=== PATIENT | male | born 1945 | race Two or more races ===

== ENCOUNTER 2016-02-25 21:35 | Emergency (ER) | payer MEDICARE, MEDICAID ==
[~2016-02-25] VITALS: Ht 172.7 cm; Wt 85.3 kg
[2016-02-25 21:35] VITALS: BP 165/93
[2016-02-25 22:07] LABS: BASOPHILS % (AUTO) 0.6 % (0.0-2.0); DIFF TOTAL % 100 %; EOSINOPHILS # (AUTO) 0.1 /CMM (0.0-0.7); EOSINOPHILS % (AUTO) 1.3 % (0.0-6.0); HEMATOCRIT 39 % (39-51); HEMOGLOBIN 12.7 g/dL (13.5-17.5); LYMPHOCYTES # (AUTO) 1.8 /CMM (0.8-4.8); LYMPHOCYTES % (AUTO) 24.8 % (20.0-44.0); MEAN CORPUSCULAR HEMOGLOBIN 29 PG (26.0-33.0); MEAN CORPUSCULAR HGB CONC 33 g/dl (31.0-36.0); MEAN CORPUSCULAR VOLUME 90 fL (80-96); MONOCYTES # (AUTO) 0.9 /CMM (0.1-1.30); MONOCYTES % (AUTO) 12.7 % (2.0-12.0); NEUTROPHILS # (AUTO) 4.5 /CMM (1.8-8.9); NEUTROPHILS % (AUTO) 60.6 % (43.0-81.0); PLATELET COUNT (AUTO) 345 /CMM (150-450); RED BLOOD CELL COUNT(AUTO) 4.34 MIL/uL (4.5-6.0); WHITE BLOOD COUNT (AUTO) 7.5 K/uL (4.3-11.0)
[2016-02-25 22:10] LABS: KETONES,URINE NEGATIVE (NEGATIVE); LEUKOCYTE ESTERASE ,URINE NEGATIVE (NEGATIVE)
[2016-02-25 22:19] LABS: ANION GAP 13 (5-14); CALCIUM, SERUM 8.9 mg/dL (8.5-10.1); CARBON DIOXIDE 29 mmol/L (21-32); CHLORIDE 103 mmol/L (98-107); GFR 74 mL/min (>60); GLUCOSE 118 mg/dL (74-106); POTASSIUM 3.6 mmol/L (3.5-5.1); SODIUM SERUM 141 mmol/L (136-145); UREA NITROGEN, BLOOD 16 mg/dL (7-18)
[2016-02-25 22:25] LABS: ALANINE AMINOTRANSFERASE 85 U/L (12-78); ALBUMIN 3.1 g/dL (3.4-5.0); ASPARTATE AMINOTRANSFERASE 39 U/L (15-37); BILIRUBIN,DIRECT 0.4 mg/dL (0.0-0.2); BILIRUBIN,TOTAL 1.3 mg/dL (0.2-1.0); INDIRECT BILIRUBIN 0.9 mg/dL (0.0-1.1); TOTAL PROTEIN, SERUM 7.7 g/dL (6.4-8.2)
[2016-02-25 22:27] LABS: LACTIC ACID 0.9 mmol/L (0.4-2.0); TROPONIN I < 0.017 ng/mL (0.00-0.056)
[2016-02-25 22:40] LABS: INR 1.1 (0.87-1.13); PROTHROMBIN TIME 11.9 SECS (9.5-12.7)
[2016-02-25 23:01] LABS: ADD UA MICROSCOPIC YES
[2016-02-25 23:06] LABS: ADD URINE CULTURE NO; RBC,URINE 0-2 /HPF (0-2); WBC,URINE 0-2 /HPF (0-3)
== END 2016-02-25 23:43 | disposition home or self-care (01) ==
LOC: ER 21:37
DX: R31.9 Hematuria, unspecified (principal); R10.9 Unspecified abdominal pain; I10 Essential (primary) hypertension
CPT/HCPCS: 36415; 71010-TC; 80048-TC; 80076-TC; 81000-TC; 83605-TC; 84484-TC; 85025-TC; 85730-TC; 87040-TC; 87400; A4606; Z7610

== ENCOUNTER 2016-07-01 15:51 | Emergency (ER) | payer MEDICARE, MEDICAID ==
[~2016-07-01] VITALS: Ht 167.6 cm; Wt 90.7 kg
--- NOTE | 2016-07-01 15:55 | NUR ---
BB FAMILY: HIGH BLOOD PRESSURE, DIZZINESS x 2 DAYS. PLACED ON MONITOR. GOWNED PT. AWAITING MD ORDER.
--- NOTE | 2016-07-01 16:26 | NUR ---
ekg in progress
[2016-07-01] MEDS ORDERED: AMLODIPINE BESYLATE 5 MG TABLET ONE (16:45)
--- NOTE | 2016-07-01 16:58 | NUR ---
RAC 18 IV ACCESS. BLOOD SAMPLE COLLECTED SENT TO LAB
[2016-07-01] MEDS ORDERED: AMLODIPINE BESYLATE 5 MG TABLET PO ONE (17:00)
--- NOTE | 2016-07-01 17:00 | NUR ---
LEAD SYSTEMS ENGINEER AT BEDSIDE
[2016-07-01 17:01] LABS: BASOPHILS # (AUTO) 0.1 /CMM (0.0-0.2); BASOPHILS % (AUTO) 0.7 % (0.0-2.0); EOSINOPHILS # (AUTO) 0.1 /CMM (0.0-0.7); HEMATOCRIT 45 % (39-51); HEMOGLOBIN 15.1 g/dL (13.5-17.5); LYMPHOCYTES # (AUTO) 2.8 /CMM (0.8-4.8); LYMPHOCYTES % (AUTO) 33.2 % (20.0-44.0); MEAN CORPUSCULAR HEMOGLOBIN 30 PG (26.0-33.0); MEAN CORPUSCULAR HGB CONC 34 g/dl (31.0-36.0); MEAN CORPUSCULAR VOLUME 90 fL (80-96); MONOCYTES # (AUTO) 0.7 /CMM (0.1-1.30); NEUTROPHILS # (AUTO) 4.6 /CMM (1.8-8.9); NEUTROPHILS % (AUTO) 57.1 % (43.0-81.0); PLATELET COUNT (AUTO) 188 /CMM (150-450); RED BLOOD CELL COUNT(AUTO) 4.98 MIL/uL (4.5-6.0); WHITE BLOOD COUNT (AUTO) 8.3 K/uL (4.3-11.0)
[2016-07-01 17:08] LABS: CALCIUM, SERUM 9.3 mg/dL (8.5-10.1); CARBON DIOXIDE 30 mmol/L (21-32); CHLORIDE 105 mmol/L (98-107); GFR 74 mL/min (>60); GLUCOSE 93 mg/dL (74-106); POTASSIUM 4.4 mmol/L (3.5-5.1); SODIUM SERUM 140 mmol/L (136-145); UREA NITROGEN, BLOOD 14 mg/dL (7-18)
[2016-07-01 17:12] LABS: INR 1.08 (0.87-1.13); PROTHROMBIN TIME 11.2 SECS (9.5-12.7)
[2016-07-01 17:18] LABS: TROPONIN I < 0.017 ng/mL (0.00-0.056)
[2016-07-01] MEDS ORDERED: VALS1TAB2 PO (17:25)
[2016-07-01] MEDS ORDERED: hydrALAZINE HCL IV 20 MG VIAL ONE (17:48)
[2016-07-01] MEDS ORDERED: hydrALAZINE HCL IV 20 MG VIAL IV ONE (18:00)
--- NOTE | 2016-07-01 18:36 | NUR ---
IV removed. Catheter intact and site benign. Pressure and 4x4 applied to site. No bleeding noted.
[2016-07-01 18:37] VITALS: BP 180/80
--- NOTE | 2016-07-01 18:37 | NUR ---
Patient discharged to home in stable condition. Written and verbal after care instructions given. Patient verbalizes understanding of instruction.
== END 2016-07-01 18:38 | disposition home or self-care (01) ==
LOC: ER 15:54
DX: I10 Essential (primary) hypertension (principal); F10.20 Alcohol dependence, uncomplicated; F17.210 Nicotine dependence, cigarettes, uncomplicated
CPT/HCPCS: 36415; 71010-TC; 80048-TC; 84484-TC; 85025-TC; 85730-TC; A4606; J0360; Z7610

== ENCOUNTER 2017-07-07 16:23 | Inpatient (IN) | payer MEDICAID, MEDICARE ==
[~2017-07-07] VITALS: Ht 170.2 cm; Wt 87.1 kg
[~2017-07-07 16:23] MED LIST: VALS1TAB2 PO
--- NOTE | 2017-07-07 16:30 | NUR ---
BIB DTRS DT CHEST PALPITATION X 15 DAYS. PATIENT IS AWAKE AND ALERT, APPEARS IN NO DISTRESS,. RESPIRATION EVEN AND UNLABORED. SKIN IS WARM AND NON DIAPHORETIC. AFEBRILE AT THIS TIME, PATIENT NOTED AFIB ON TELE MONITOR. MD MADE AWARE. EKG IN PROGRESS
[2017-07-07] MEDS ORDERED: ASPIRIN EC 325 MG TABLET.DR PO ONE (16:34)
[2017-07-07] MEDS ORDERED: DILTIAZEM HCL 25 MG IV ONE (16:40)
[2017-07-07] MEDS ORDERED: ASPIRIN 325 MG TABLET ONE (16:43)
--- NOTE | 2017-07-07 16:44 | NUR ---
DITIAZEM SLOW IVP GIVEN ORDERED
[2017-07-07 16:48] LABS: BASOPHILS # (AUTO) 0.1 /CMM (0.0-0.2); BASOPHILS % (AUTO) 1.1 % (0.0-2.0); EOSINOPHILS % (AUTO) 0.5 % (0.0-6.0); HEMATOCRIT 45 % (39-51); HEMOGLOBIN 15.2 g/dL (13.5-17.5); MEAN CORPUSCULAR HGB CONC 34 g/dl (31.0-36.0); MEAN CORPUSCULAR VOLUME 88 fL (80-96); MONOCYTES # (AUTO) 0.7 /CMM (0.1-1.30); MONOCYTES % (AUTO) 6.3 % (2.0-12.0); NEUTROPHILS # (AUTO) 7.5 /CMM (1.8-8.9); NEUTROPHILS % (AUTO) 66.1 % (43.0-81.0); PLATELET COUNT (AUTO) 178 /CMM (150-450); RDW COEFFICIENT OF VARIATION 13.6 (11.5-15.0); RED BLOOD CELL COUNT(AUTO) 5.05 MIL/uL (4.5-6.0); WHITE BLOOD COUNT (AUTO) 11.4 K/uL (4.3-11.0)
--- NOTE | 2017-07-07 16:50 | NUR ---
CALLED PHARMACY FOR MITUL MCLEAN
--- NOTE | 2017-07-07 16:54 | NUR ---
CALLED NURSING MEDICAL RECORD ADMINISTRATOR AND REQUESTED AN ICU BED FOR THIS PT.
--- NOTE | 2017-07-07 16:55 | NUR ---
DR. JENKINS AT BEDSIDE
[2017-07-07] MEDS ORDERED: ASPIRIN 325 MG TABLET PO ONE (17:00)
[2017-07-07] MEDS ORDERED: DILTIAZEM HCL IV 125 MG in IV NS 0.9% 100 ML IV PRN (17:00)
[2017-07-07] MEDS ORDERED: DILTIAZEM HCL 25 MG IV IV ONE (17:00)
--- NOTE | 2017-07-07 17:05 | NUR ---
CARDIZEM DRIP NOT STARTED PER MD LAIRD. PATIENT'S HR CONTROLLED.
[2017-07-07 17:13] LABS: TROPONIN I 0.02 ng/mL (0.00-0.056)
[2017-07-07] MEDS ORDERED: ERGO500014 PO (17:15)
[2017-07-07] MEDS ORDERED: METO50TA16 PO (17:15)
[2017-07-07] MEDS ORDERED: ASPI-866 PO (17:15)
[2017-07-07] MEDS ORDERED: HYDR25TA4 PO (17:15)
[2017-07-07] MEDS ORDERED: NIFE60TA69 PO (17:15)
[2017-07-07] MEDS ORDERED: LOVA20TA2 PO (17:15)
[2017-07-07] MEDS ORDERED: IBUP-1957 PO (17:15)
[2017-07-07 17:22] LABS: INR 1.11 (0.85-1.15)
[2017-07-07 17:35] LABS: CALCIUM, SERUM 8.7 mg/dL (8.5-10.1); CREATININE 1.5 mg/dL (0.6-1.3); POTASSIUM 3.8 mmol/L (3.5-5.1)
[2017-07-07 17:37] LABS: ALBUMIN 3.6 g/dL (3.4-5.0); BILIRUBIN,DIRECT 0.3 mg/dL (0.0-0.2); BILIRUBIN,TOTAL 1.6 mg/dL (0.2-1.0); TOTAL PROTEIN, SERUM 7.4 g/dL (6.4-8.2)
[2017-07-07] MEDS ORDERED: IV NS 0.9% 1,000 ML IV PRN (17:51)
[2017-07-07] MEDS ORDERED: ZOLPIDEM TARTRATE 5 MG TABLET PO PRN (18:00)
[2017-07-07] MEDS ORDERED: Z GUARD REMEDY 2 OZ OINT TP PRN (18:00)
[2017-07-07] MEDS ORDERED: IV NS 0.9% 1,000 ML BAG IV ONE (18:00)
[2017-07-07] MEDS ORDERED: MAGNESIUM HYDROXIDE 30 ML UDC PO PRN (18:00)
[2017-07-07] MEDS ORDERED: HYDROCODONE/APAP 5/325MG 1 EACH TABLET PO PRN (18:00)
[2017-07-07] MEDS ORDERED: DILTIAZEM HCL 50 MG IV IV PRN (18:00)
[2017-07-07] MEDS ORDERED: ONDANSETRON HCL/PF 4 MG/2 ML VIAL IVP PRN (18:00)
[2017-07-07] MEDS ORDERED: ERGOCALCIFEROL (VITAMIN D 2) 50,000 UNIT CAPSULE PO SCH (18:00)
[2017-07-07] MEDS ORDERED: ACETAMINOPHEN 325 MG TABLET PO PRN (18:00)
[2017-07-07] MEDS ORDERED: MAG HYDROX/AL HYDROX/SIMETH 30 ML UDC PO PRN (18:00)
--- NOTE | 2017-07-07 18:11 | NUR ---
PT IS ASSIGNED TO [facility] RM#: [id number], PT IS DIAGNOSED WITH A-FIB WITH RVR, AND DR JENKINS IS THE ACCEPTING MD.
--- NOTE | 2017-07-07 18:35 | NUR ---
PATIENT TRANSPORTED TO TELE. S
--- NOTE | 2017-07-07 18:40 | NUR ---
SALES AND MARKETING EXECUTIVE NOTE: RECEIVED PATIENT IN ROOM 112-2 AND REPORT WAS GIVEN BY ZACHARIAH PÉREZ RN. PATIENT WAS TRANSPORTED VIA GURNEY WITH HIS FAMILY PRESENT AT THE BEDSIDE. ON INCLINOMETER TESTER, Joe MCDANIELS (CONTROLLED) HR= 85. PER ZACHARIAH PÉREZ NURSE CARDIZEM 15MG IVP X1 AND ASPIRIN 325 MG PO X1 WAS ADMINISTERED IN ER. VITAL SIGN WAS TAKEN. BP= 156/91, 97.9F, 85, 20 97% IN ROOM AIR AND 0/10. REPORT WILL BE GIVEN TO PM SHIFT NURSE FOR CONTINUITY OF CARE.
[2017-07-07] MEDS: NIFEdipine XL 60 MG TAB PO SCH (18:56)
[2017-07-07] MEDS: METOPROLOL TARTRATE 50 MG TABLET PO SCH (18:56)
[2017-07-07] MEDS ORDERED: ENOXAPARIN SODIUM 40 MG/0.4 ML DISP.SYRIN SQ SCH ×2 (19:00)
[2017-07-07 20:00] VITALS: BP_SYST 160; BP_DIAS 70; BP_DIAS 77
[2017-07-07 20:56] VITALS: BP 160/77
[2017-07-08] VITALS: BP 139/80
[2017-07-08 04:00] VITALS: BP 119/59
[2017-07-08] MEDS: DILTIAZEM HCL 25 MG IV IV PRN (05:00)
[2017-07-08 06:17] LABS: BASOPHILS # (AUTO) 0.1 /CMM (0.0-0.2); BASOPHILS % (AUTO) 0.5 % (0.0-2.0); EOSINOPHILS % (AUTO) 0.8 % (0.0-6.0); HEMATOCRIT 42 % (39-51); HEMOGLOBIN 14.1 g/dL (13.5-17.5); LYMPHOCYTES # (AUTO) 3.7 /CMM (0.8-4.8); LYMPHOCYTES % (AUTO) 29.4 % (20.0-44.0); MEAN CORPUSCULAR HGB CONC 33 g/dl (31.0-36.0); MEAN CORPUSCULAR VOLUME 90 fL (80-96); MONOCYTES # (AUTO) 1.1 /CMM (0.1-1.30); MONOCYTES % (AUTO) 8.4 % (2.0-12.0); NEUTROPHILS # (AUTO) 7.6 /CMM (1.8-8.9); NEUTROPHILS % (AUTO) 60.9 % (43.0-81.0); PLATELET COUNT (AUTO) 185 /CMM (150-450); RDW COEFFICIENT OF VARIATION 14.7 (11.5-15.0); RED BLOOD CELL COUNT(AUTO) 4.71 MIL/uL (4.5-6.0); WHITE BLOOD COUNT (AUTO) 12.5 K/uL (4.3-11.0)
--- NOTE | 2017-07-08 06:26 | NUR ---
RN NOTES RECEIVED PATIENT IN BED EATING WITH FAMILY AT BEDSIDE. NO RESPIRATORY DISTRESS OR SHORTNESS OF BREATH. BREATHING EVEN AND UNLABORED. NO COMPLAINT OF PAIN OF THIS TIME. ALERT AND ORIENTED, YORUBA SPEAKING. ABLE TO VERBALIZE NEEDS. WILL CONTINUE TO MONITOR. KEPT CLEAN AND DRY.
--- NOTE | 2017-07-08 06:28 | NUR ---
RN NOTES ALERT AND ORIENTED. PATIENT DID NOT SLEEP THE WHOLE NIGHT COMPLAINING OF ACID REFLUX AND CHEST PALPITATION. MAALOX AND CARDIZEM GIVEN, WITH HELP. HEART RATE FLACTUATES FROM 70'S TO 165BPM. AFEBRILE WITH SKIN WARM AND DRY TO TOUCH. KEPT CLEAN AND DRY. WILL ENDORSE TO AM SHIFT FOR CONTINUITY OF CARE.
[2017-07-08 06:50] LABS: CALCIUM, SERUM 8.8 mg/dL (8.5-10.1); CREATININE 1.3 mg/dL (0.6-1.3); MAGNESIUM 1.7 mg/dL (1.8-2.4); PHOSPHORUS 2.4 mg/dL (2.5-4.9); POTASSIUM 3.6 mmol/L (3.5-5.1)
--- NOTE | 2017-07-08 07:25 | NUR ---
RN NOTES RECEIVED PT FROM LABOR CREW SUPERVISOR, A&0X3, PRIMARILY GEORGIAN SPEAKING, ON ROOM AIR NO SOB OR DISTRESS NOTED. A FIB ON THE TELE LAURA HR 83. RAC 20G IV SITE INTACT NO IVF. BED LOCKED AND IN LOWEST POSITION, CALL LIGHT WITHIN REACH, SIDE RAILS UPX3, WILL CONT TO LAURA.
[2017-07-08 08:00] VITALS: BP_SYST 117; BP_SYST 118; BP_DIAS 52; BP_DIAS 79
[2017-07-08] MEDS: METOPROLOL TARTRATE 50 MG TABLET PO SCH (08:31)
[2017-07-08] MEDS: NIFEdipine XL 60 MG TAB PO SCH (08:31)
[2017-07-08] MEDS ORDERED: ASPIRIN EC 81 MG TABLET.DR PO SCH (09:00)
--- NOTE | 2017-07-08 09:00 | NUR ---
RN NOTES PT SR ON WITH PACS ON TELE LAURA.
[2017-07-08] MEDS: Magnesium 1GM/D5W 100ML PREMIX 100 ML IV SCH ×2 (09:45→11:10)
[2017-07-08] MEDS: DRONEDARONE HYDROCHLORIDE 400 MG TABLET PO SCH ×2 (10:26→16:18)
[2017-07-08 12:00] VITALS: BP 129/56
[2017-07-08] MEDS ORDERED: K PHOS NEUTRAL 250 MG TABLET PO ONE (15:30)
--- NOTE | 2017-07-08 15:40 | NUR ---
Patient speaks Greek,lives locally with family. He is ambulatory and independent with adl's prior to admit. Has good family support. He plan to return home once discharge. Family will provide ride when discharge. Addendum: 07/08/17 at 1540 by JODEE CHRISTENSEN RN Amended: Links added.
[2017-07-08 16:00] VITALS: BP 107/47
[2017-07-08] MEDS ORDERED: FLUTICASONE PROPIONATE 16 GM BOTTLE NS PRN (16:00)
[2017-07-08] MEDS ORDERED: RIVAROXABAN 10 MG TABLET PO SCH (17:00)
--- NOTE | 2017-07-08 17:40 | NUR ---
RN NOTES REPORT GIVEN TO FLORENCIA FOR CONTINUITY OF CARE.
--- NOTE | 2017-07-08 17:45 | NUR ---
PROMOTIONAL ADVERTISING ASSISTANT NOTES RECEIVED PATIENT FROM [place] FOR CONTINUITY OF CARE, ON TELE MONITOR 84 NSR. AMBULATORY, FAMILY AT BEDSIDE, WILL CONTINUE TO MONITOR
--- NOTE | 2017-07-08 18:57 | NUR ---
GRINDER CHIPPER END NOTES PATIENT RESTING IN BED, FAMILY AT BEDSIDE, ALL NEEDS MET, ALL QUESTIONS ANSWERED. WILL ENDORSE TO SHIRT IRONER SUPERVISOR FOR CONTINUITY OF CARE.
[2017-07-08 20:00] VITALS: BP 129/63
[2017-07-09] VITALS: BP 106/64
[2017-07-09] MEDS: DILTIAZEM HCL 25 MG IV IV PRN ×2 (01:58→06:42)
--- NOTE | 2017-07-09 02:30 | NUR ---
RN NOTES NOTED PATIENT'S HR INCREASING FROM 140'S TO 165. DILTIAZEM 10MG (2ML) ADMINISTERED VIA IV SLOW PUSH AT 0158. CONTINUED TO MONITOR. PATIENT'S HR STABILIZES FROM 80'S TO 90'S. WILL CONTINUE TO MONITOR
--- NOTE | 2017-07-09 03:37 | NUR ---
RN NOTES PATIENT AWAKE, ALERT AND ORIENTED. LYING COMFORTABLY IN BED WITH NO RESPIRATORY DISTRESS OR SHORTNESS OF BREATH. BREATHING EVEN AND UNLABORED. NO COMPLAINT OF PAIN OF THIS TIME. PATIENT STATED HE FELT BETTER THAN LAST NIGHT. TO CONTINUE TO MONITOR. KEPT CLEAN AND DRY. Addendum: 07/09/17 at 0344 by MAURO ANDREWS RN DOCUMENTATION FOR 1999.
[2017-07-09 04:00] VITALS: BP 128/59
--- NOTE | 2017-07-09 06:50 | NUR ---
RN CLOSING NOTES PATIENT IN BED, COMPLAINING OF PALPITATION. NOTED INCREASE IN HEART RATE TO 170'S. CARDIZEM IV PUSH 10MG GIVEN. Addendum: 07/09/17 at 0656 by MAURO ANDREWS RN MEDICATION WITH HELP. PATIENT'S HEART IN THE 80'S. PATIENT ALSO NOTED WITH COMPLAINT OF REFLUX AND PALPITATION. HINTED THAT MAYBE THE CAUSE OF HIS PALPITATION IS HIS REFLUX. OBSERVED PATIENT BURPING A LOT. WILL ENDORSE TO AM SHIFT FOR CONTINUITY OF CARE.
[2017-07-09 07:06] LABS: BASOPHILS % (AUTO) 0.4 % (0.0-2.0); EOSINOPHILS % (AUTO) 1.1 % (0.0-6.0); HEMATOCRIT 41 % (39-51); HEMOGLOBIN 13.9 g/dL (13.5-17.5); LYMPHOCYTES # (AUTO) 3.1 /CMM (0.8-4.8); LYMPHOCYTES % (AUTO) 30.7 % (20.0-44.0); MEAN CORPUSCULAR HGB CONC 34 g/dl (31.0-36.0); MEAN CORPUSCULAR VOLUME 89 fL (80-96); MONOCYTES % (AUTO) 9.5 % (2.0-12.0); NEUTROPHILS # (AUTO) 5.9 /CMM (1.8-8.9); NEUTROPHILS % (AUTO) 58.3 % (43.0-81.0); PLATELET COUNT (AUTO) 181 /CMM (150-450); RDW COEFFICIENT OF VARIATION 14.7 (11.5-15.0); RED BLOOD CELL COUNT(AUTO) 4.59 MIL/uL (4.5-6.0); WHITE BLOOD COUNT (AUTO) 10.1 K/uL (4.3-11.0)
--- NOTE | 2017-07-09 07:10 | NUR ---
STORAGE ARCHITECT OPENING NOTES RECEIVED PT IN BED IN SEMI FOWLERS POSITION, BREATHING EVEN AND UNLABORED, NO C/O PAIN, ON TELE MONITOR SR 77, WITH LAC IV, INTACT AND PATENT, BED IN LOW AND LOCKED POSITION, CALL LIGHT WITHIN REACH, SAFETY MEASURES OBSERVED, WILL CONTINUE TO MONITOR
[2017-07-09 07:23] LABS: ALBUMIN 3.7 g/dL (3.4-5.0); BILIRUBIN,TOTAL 2.3 mg/dL (0.2-1.0); CALCIUM, SERUM 8.7 mg/dL (8.5-10.1); CREATININE 1.1 mg/dL (0.6-1.3); PHOSPHORUS 3.2 mg/dL (2.5-4.9); POTASSIUM 3.6 mmol/L (3.5-5.1); TOTAL PROTEIN, SERUM 7.5 g/dL (6.4-8.2)
[2017-07-09 08:00] VITALS: BP 133/78
[2017-07-09] MEDS: DRONEDARONE HYDROCHLORIDE 400 MG TABLET PO SCH (09:46)
[2017-07-09] MEDS: NIFEdipine XL 60 MG TAB PO SCH (09:46)
[2017-07-09] MEDS ORDERED: RIVA10TA PO (11:19)
[2017-07-09] MEDS ORDERED: DRON400T2 PO (11:19)
[2017-07-09 12:00] VITALS: BP 130/75
--- NOTE | 2017-07-09 13:30 | NUR ---
SALVAGE MEND WORKER NOTES D/C PT TO HOME IN STABLE CONDITION, NO ACUTE DISTRESS NOTED, NO C/O PAIN, ACCOMPANIED BY DAUGHTER TL, IV LINE REMOVED, IV CATH INTACT, PRESSURE DRESSING APPLIED, NO SIGNS OF INFECTION/BLEEDING, DISCUSSED D/C INSTRUCTION TO PT AND TL(PT'S DTR), VERBALIZED UNDERSTANDING, ALL NEEDS MET. D/C
== END 2017-07-09 13:29 | disposition home or self-care (01) | DRG 201 ==
LOC: ER 16:28 → TELE1 18:25
PROVIDERS: ADMIT Internal Medicine; ATTEND Internal Medicine
DX: I48.91 Unspecified atrial fibrillation (principal); N17.0 Acute kidney failure with tubular necrosis; I10 Essential (primary) hypertension; E78.5 Hyperlipidemia, unspecified; F17.210 Nicotine dependence, cigarettes, uncomplicated; Z71.6 Tobacco abuse counseling; E83.42 Hypomagnesemia
CPT/HCPCS: 36415; 71045-TC; 80048-TC; 80053-TC; 80061-TC; 80076-TC; 83735-TC; 84100-TC; 84443-TC; 84484-TC; 85025-TC; 85730-TC; 87081-TC; 93307-TC; A4606; J2405; J3475; J3490; J7030; Z7610

== ENCOUNTER 2021-12-01 14:26 | Inpatient (IN) | payer MEDICARE, BC ==
[~2021-12-01] VITALS: Ht 162.6 cm; Wt 88.5 kg
[~2021-12-01 14:26] MED LIST changes: +ASPI-866 PO; +DRON400T6 PO; +ERGO500014 PO; +HYDR25TA4 PO; +IBUP-1957 PO; +LOVA20TA2 PO; +METO50TA16 PO; +NIFE-34 PO; +RIVA10TA PO; -VALS1TAB2 PO
--- NOTE | 2021-12-01 14:35 | NUR ---
pt milton from home to er bed 07, per ems pt was c/o pressure like chest pain, palpitation at home when check his heart rate was at 200's. paramedics came and gave adenosine 6mg x 1, converted to sinus tach. pt is aaox 4 east timorese speaking. awaiting md marina.
--- NOTE | 2021-12-01 15:55 | NUR ---
dr nettles at bedside for eval.
[2021-12-01] MEDS ORDERED: ASPIRIN 325 MG TABLET PO ONE (16:00)
[2021-12-01] MEDS ORDERED: ASPIRIN 325 MG TABLET ONE (16:03)
--- NOTE | 2021-12-01 16:11 | NUR ---
clinical genetics laboratory chief at bedside for blood draw.
[2021-12-01 16:17] LABS: BASOPHILS # (AUTO) 0.1 K/uL (0.0-0.2); BASOPHILS % (AUTO) 0.9 % (0.0-2.0); EOSINOPHILS % (AUTO) 0.3 % (0.0-6.0); HEMATOCRIT 36 % (39-51); HEMOGLOBIN 11.4 g/dL (13.5-17.5); LYMPHOCYTES # (AUTO) 1.3 K/uL (0.8-4.8); LYMPHOCYTES % (AUTO) 13.4 % (20.0-44.0); MEAN CORPUSCULAR HGB CONC 32 g/dl (31.0-36.0); MEAN CORPUSCULAR VOLUME 91 fL (80-96); MONOCYTES # (AUTO) 1.1 K/uL (0.1-1.30); MONOCYTES % (AUTO) 11.3 % (2.0-12.0); NEUTROPHILS # (AUTO) 6.9 K/uL (1.8-8.9); NEUTROPHILS % (AUTO) 74.1 % (43.0-81.0); PLATELET COUNT (AUTO) 280 K/uL (150-450); RED BLOOD CELL COUNT(AUTO) 3.91 MIL/uL (4.5-6.0); WHITE BLOOD COUNT (AUTO) 9.3 K/uL (4.3-11.0)
[2021-12-01 16:31] LABS: CALCIUM, SERUM 8.8 mg/dL (8.5-10.1); CARBON DIOXIDE 27 mmol/L (21-32); CHLORIDE 105 mmol/L (98-107); CREATININE 1.5 mg/dL (0.6-1.3); GLUCOSE 110 mg/dL (74-106); POTASSIUM 4.1 mmol/L (3.5-5.1); SODIUM SERUM 140 mmol/L (136-145); UREA NITROGEN, BLOOD 16 mg/dL (7-18)
[2021-12-01 16:43] LABS: ALANINE AMINOTRANSFERASE 53 U/L (12-78); ALKALINE PHOSPHATASE 107 U/L (46-116); ASPARTATE AMINOTRANSFERASE 29 U/L (15-37); BILIRUBIN,DIRECT 0.8 mg/dL (0.0-0.2); BILIRUBIN,TOTAL 1.9 mg/dL (0.2-1.0)
[2021-12-01] MEDS ORDERED: FUROSEMIDE 20 MG/2 ML VIAL IV ONE (17:30)
[2021-12-01] MEDS ORDERED: FUROSEMIDE 20 MG/2 ML VIAL ONE (17:35)
[2021-12-01] MEDS ORDERED: ERGO500093 PO (18:13)
[2021-12-01] MEDS ORDERED: METO25TA4 PO (18:13)
[2021-12-01] MEDS ORDERED: ESOM40CA PO (18:13)
[2021-12-01] MEDS ORDERED: ROSU20TA32 PO (18:13)
[2021-12-01] MEDS ORDERED: IBUP-1957 PO (18:13)
[2021-12-01] MEDS ORDERED: PROM118S5 PO (18:13)
[2021-12-01] MEDS ORDERED: FAMO40TA7 PO (18:13)
[2021-12-01] MEDS ORDERED: HYDR28.316 RC (18:13)
[2021-12-01] MEDS ORDERED: NYST30CR3 TD (18:13)
[2021-12-01] MEDS ORDERED: FLUT16SP16 (18:13)
[2021-12-01] MEDS ORDERED: METF-440 PO (18:13)
--- NOTE | 2021-12-01 19:00 | NUR ---
daughter jessi left contact # [phone]
--- NOTE | 2021-12-01 19:17 | NUR ---
report given to inderjit doe for robb.
--- NOTE | 2021-12-01 19:49 | NUR ---
RECEIVED REPORT FROM MELIZA RAYA. PATIENT IS AAOX4. ABLE TO MAKE NEEDS KNOWN. CAME WITH CC OF TACHYCARDIA. PATIENT ATTACHED TO MONITOR. VITALS CHECKED. WITH IV CANNULA G18 ON RIGHT AC.
[2021-12-01] MEDS ORDERED: Z GUARD REMEDY 4 OZ OINT TP PRN (20:30)
[2021-12-01] MEDS ORDERED: TEMAZEPAM 15 MG CAPSULE PO PRN (20:30)
[2021-12-01] MEDS ORDERED: MAG HYDROX/AL HYDROX/SIMETH 30 ML UDC PO PRN (20:30)
[2021-12-01] MEDS ORDERED: MORPHINE SULFATE INJ 2 MG/ML DISP.SYRIN IV PRN (20:30)
[2021-12-01] MEDS ORDERED: ONDANSETRON HCL/PF 4 MG/2 ML VIAL IVP PRN (20:30)
[2021-12-01] MEDS ORDERED: HYDROCODONE/APAP 5/325MG TABLET PO PRN (20:30)
[2021-12-01] MEDS ORDERED: MAGNESIUM HYDROXIDE 30 ML UDC PO PRN (20:30)
[2021-12-01] MEDS ORDERED: ACETAMINOPHEN 325 MG TABLET PO PRN (20:30)
[2021-12-01] MEDS ORDERED: ENOXAPARIN SODIUM 30 MG/0.3 ML DISP.SYRIN SQ SCH (21:00)
--- NOTE | 2021-12-01 21:45 | NUR ---
REPORT GIVEN TO MELIZA GENAO.
--- NOTE | 2021-12-01 22:09 | NUR ---
TRANSFERRED PATIENT TO ROOM
[2021-12-01 22:21] VITALS: BP 146/81
--- NOTE | 2021-12-01 22:21 | NUR ---
ENGRAVING SUPERVISOR NOTES: RECEIVED REPORT FROM BROILER CHEF OR COOKMELIZA LONDON. PT TRANSFERRED TO DEL FROM ER VIA STRETCHER, PLACED IN ROOM 116 BED 1. PT AWAKE, ALERT/ORIENTED X4 AND VERBALLY RESPONSIVE. ISRAELI SPEAKING. ABLE TO MAKE HER NEEDS. ON ROOM AIR AND PT TOLERATED WELL. O2 SAT 96%. IV ACCESS ON LAC#20G INTACT AND PATENT. NO S/S OF INFILTRATIONS. NO C/O CHEST PAIN AT THIS MOMENT. NO ACUTE DISTRESS. BODY ASSESSMENT DONE. NO OPEN SKIN OR SKIN DISCOLORATIONS NOTED. PT AMBULATORY. ASSISTED HIM TO THE BATHROOM. AT BEDSIDE. ALL SAFETY MEASURES IN PLACE. SIDE RAILS UP X2, BED IN LOWEST POSITION AND LOCKED. PLACE CALL LIGHT WITH IN REACH. WILL CONTINUE TO MONITOR
--- NOTE | 2021-12-01 22:51 | NUR ---
PRELIMINARY ECHO SHOWED EF 65-70% WITH SMALL TO MODERATE CIRCUMFERENTIAL PERICARDIAL EFFUSION. ADVISED INITIAL FINDINGS TO WINCH TRUCK OPERATOR.
[2021-12-02] VITALS: BP 127/75
[2021-12-02 04:00] VITALS: BP 154/78
--- NOTE | 2021-12-02 06:40 | NUR ---
RN CLOSING NOTES: PT AWAKE, ALERT/ORIENTED X4 AND VERBALLY RESPONSIVE. YI SPEAKING. WALKING ON THE HALLWAY. ABLE TO MAKE HIS ALL NEEDS. ON ROOM AIR AND PT TOLERATED WELL. O2 SAT 97%. IV ACCESS ON LAC#20G INTACT AND PATENT. NO S/S OF INFILTRATIONS. NO C/O PAIN OR DISCOMFORT. NO ACUTE DISTRESS. DUE MED GIVEN ORDERED. ALL SAFETY MEASURES IN PLACE. SIDE RAILS UP X2, BED IN LOWEST POSITION AND LOCKED. PLACE CALL LIGHT WITH IN REACH. WILL ENDORSE TO MORNING SHIFT NURSE.
--- NOTE | 2021-12-02 07:00 | NUR ---
RN NOTE RECEIVED PATIENT IN BED,SITTING ALERT ORIENTED X4 VERBALLY RESPONSIVE,TANZANIAN SPEAKING ON ROOM AIR O2:93% AMBULATORY,CONTINET BOWEL/BLADDER.IV SITE IS ON LAC INTACT PATENT,SAFETY MEASURE IMPLEMENT BED IN LOW POSITION AND LOCKED,CALL LIGHT WITHIN REACH,CONTINUE TO MONITOR.
[2021-12-02] MEDS ORDERED: PANTOPRAZOLE 40 MG TABLET.DR PO SCH (07:30)
[2021-12-02 08:00] VITALS: BP 158/84
[2021-12-02 08:16] LABS: CARBON DIOXIDE 24 mmol/L (21-32); CHLORIDE 105 mmol/L (98-107); CREATININE 1.7 mg/dL (0.6-1.3); GLUCOSE 132 mg/dL (74-106); PHOSPHORUS 3.4 mg/dL (2.5-4.9); POTASSIUM 3.7 mmol/L (3.5-5.1); SODIUM SERUM 137 mmol/L (136-145)
[2021-12-02 08:33] LABS: CHOLESTEROL 134 mg/dL (<200); HDL CHOLESTEROL 28 mg/dL (40-60); LDL 97 mg/dL (0-99); THYROID STIMULATING HORMONE 0.905 uIU/mL (0.358-3.74); TRIGLYCERIDES 90 mg/dL (30-150)
[2021-12-02] MEDS ORDERED: FAMOTIDINE (20 MG) 20 MG TABLET PO SCH (09:00)
[2021-12-02] MEDS ORDERED: METFORMIN 500 MG TABLET PO SCH (09:00)
--- NOTE | 2021-12-02 09:00 | NUR ---
RN NOTE DR MARTINEZ SPOKE WITH PATIENT DR RUBIN PRODUCTION PLANNER PATIENT REFUSED,TRANSLATED BY ILANA HAIDER,CONTINUE TO MONITOR.
[2021-12-02 10:45] LABS: UREA NITROGEN, BLOOD 21 mg/dL (7-18)
[2021-12-02 12:00] VITALS: BP 164/98
[2021-12-02] MEDS ORDERED: METOPROLOL TARTRATE 50 MG TABLET PO SCH (12:00)
[2021-12-02 12:21] LABS: BASOPHILS # (AUTO) 0.1 K/uL (0.0-0.2); BASOPHILS % (AUTO) 0.9 % (0.0-2.0); EOSINOPHILS % (AUTO) 1.1 % (0.0-6.0); HEMATOCRIT 35 % (39-51); HEMOGLOBIN 11.4 g/dL (13.5-17.5); LYMPHOCYTES # (AUTO) 2.1 K/uL (0.8-4.8); LYMPHOCYTES % (AUTO) 23.4 % (20.0-44.0); MEAN CORPUSCULAR HGB CONC 33 g/dl (31.0-36.0); MEAN CORPUSCULAR VOLUME 91 fL (80-96); MONOCYTES % (AUTO) 11.7 % (2.0-12.0); NEUTROPHILS # (AUTO) 5.6 K/uL (1.8-8.9); NEUTROPHILS % (AUTO) 62.9 % (43.0-81.0); PLATELET COUNT (AUTO) 292 K/uL (150-450); RED BLOOD CELL COUNT(AUTO) 3.81 MIL/uL (4.5-6.0)
[2021-12-02 12:22] VITALS: BP 164/98
--- NOTE | 2021-12-02 13:00 | NUR ---
RN NOTE CLOTH WASHER NORA PATTON VISITED THE PATIENT REVIEWED ALL MEDS AND POSSIBLE PROCEDURES,PATIENT REFUSED ASSOCIATE PRODUCER,TRANSLATED BY ILANA HAIDER. CONTINUE TO MONITOR.
[2021-12-02] MEDS ORDERED: APIX2.5T PO (13:11)
[2021-12-02] MEDS ORDERED: EMPA10TA PO (13:11)
[2021-12-02] MEDS ORDERED: METO50TA16 PO (13:11)
--- NOTE | 2021-12-02 14:25 | NUR ---
PIPE BENDER NOTE PATIENT DISCHARGE IN STABLE CONDITION,WITH ALL DISCHARGE PAPER WORK AND BELONGINGS,PT SIGNED ALL DISCHARGE PAPERS AND BELONGINGS,ALERT ORIENTED X4 VERBALLY RESPONSIVE ON ROOM AIR 94%NO SOB NOT ACUTE DISTRESS NOTED,INSTRUCTION GIVEN FOR MEDS AND FOLLOWING WITH PRIMARY PHYSICIAN,HE VERBALIZED UNDERSTOOD ALL TEACHING,HE PICKED UP WITH HIS GRANDSON,LEFT HOSPITAL IN STABLE CONDITION BY PRIVATE CAR.VITAL SIGN. 140/86 HR 86 O2:94% ON ROOM AIR T:98.6
[2021-12-02] MEDS ORDERED: N PO SCH (18:00)
[2021-12-03 11:07] LABS: *SPE A/G RATIO 0.8 (0.7-1.7); *SPE ALPHA-1-GLOBULIN 0.5 g/dL (0.0-0.4); *SPE ALPHA-2-GLOBULIN 1.1 g/dL (0.4-1.0); *SPE M-SPIKE Not Observed g/dL (Not Observed)
== END 2021-12-02 15:55 | disposition home or self-care (01) | DRG 308 ==
LOC: ER 14:28 → TELE1 19:38
PROVIDERS: ADMIT Nurse Practitioner Acute Care; ATTEND Nurse Practitioner Acute Care
DX: I47.1 Supraventricular tachycardia (principal); N17.0 Acute kidney failure with tubular necrosis; I24.9 Acute ischemic heart disease, unspecified; R17 Unspecified jaundice; I31.39 Other pericardial effusion (noninflammatory); I48.91 Unspecified atrial fibrillation; E11.9 Type 2 diabetes mellitus without complications; E78.5 Hyperlipidemia, unspecified; E66.9 Obesity, unspecified; D63.8 Anemia in other chronic diseases classified elsewhere; F17.210 Nicotine dependence, cigarettes, uncomplicated; Z71.6 Tobacco abuse counseling; Z68.33 Body mass index [BMI] 33.0-33.9, adult; Z91.199 Patient's noncompliance with other medical treatment and regimen due to unspecified reason; I11.0 Hypertensive heart disease with heart failure; I50.9 Heart failure, unspecified; Z79.84 Long term (current) use of oral hypoglycemic drugs
CPT/HCPCS: 36415; 71045-TC; 76700-TC; 80048-TC; 80061-TC; 80076-TC; 82728-TC; 83540-TC; 83735-TC; 83880; 84100-TC; 84155; 84165; 84439-TC; 84443-TC; 84484-TC; 85025-TC; 87081-TC; 93307-TC; C9803; G0378; J1650; J1940

== ENCOUNTER 2022-02-13 14:34 | Emergency (ER) | payer MEDICARE, BC ==
[~2022-02-13] VITALS: Ht 167.6 cm; Wt 86.2 kg
[~2022-02-13 14:34] MED LIST changes: +APIX2.5T PO; -ASPI-866 PO; -DRON400T6 PO; +EMPA10TA PO; -ERGO500014 PO; +ERGO500093 PO; +ESOM40CA PO; +FAMO40TA7 PO; +FLUT16SP16; -HYDR25TA4 PO; +HYDR28.316 RC; -LOVA20TA2 PO; +METF-440 PO; +METO25TA4 PO; -NIFE-34 PO; +NYST30CR3 TD; +PROM118S5 PO; -RIVA10TA PO; +ROSU20TA32 PO
--- NOTE | 2022-02-13 15:00 | NUR ---
Reclining in bed NO obvious distress Scope shows [facility]
[2022-02-13] MEDS ORDERED: METOPROLOL TARTRATE 25 MG TABLET PO ONE (16:00)
[2022-02-13] MEDS ORDERED: METOPROLOL TARTRATE 25 MG TABLET ONE (16:13)
--- NOTE | 2022-02-13 16:45 | NUR ---
Daughter (Sona) at bedside aware and updated with plan of care apparently "he did not take metoprolol and lasix for couple days." Reiterated importance of meds for condition and she states "well.... i know. I know...you cant force him - thats why he is here"
[2022-02-13] MEDS ORDERED: FUROSEMIDE 40 MG/4 ML VIAL ONE (18:00)
[2022-02-13] MEDS ORDERED: FUROSEMIDE 40 MG/4 ML VIAL IV ONE (18:00)
--- NOTE | 2022-02-13 18:00 | NUR ---
US at bedside
[2022-02-13 18:42] VITALS: BP 134/81
--- NOTE | 2022-02-13 18:43 | NUR ---
Patient discharged to home in stable condition. Written and verbal after care instructions given. Patient verbalizes understanding of instruction.
== END 2022-02-13 18:53 | disposition home or self-care (01) ==
LOC: ER 14:40
DX: I47.1 Supraventricular tachycardia (principal); R60.0 Localized edema; I11.0 Hypertensive heart disease with heart failure; I50.9 Heart failure, unspecified; E78.5 Hyperlipidemia, unspecified; E11.9 Type 2 diabetes mellitus without complications; F17.200 Nicotine dependence, unspecified, uncomplicated; Z79.899 Other long term (current) drug therapy
CPT/HCPCS: 99285; 93970; 96374; 93005; J1940

== ENCOUNTER 2022-04-24 13:46 | Inpatient (IN) | payer MEDICARE, BC ==
[~2022-04-24] VITALS: Ht 157.5 cm; Wt 85.7 kg
--- NOTE | 2022-04-24 13:46 | NUR ---
RECEIVED PT 76 YRS MALE CAME FROM HOME BY SIMON FOR PALPITIONS AND SOB HR 201 B/MIN AN FOR SOB AND AWAKE AND ALERT H/L ON LT AC 18 EKG AT BED SIDE TO OPTENDED PLACE PT ON FIO2 2L NC
[2022-04-24] MEDS ORDERED: ADENOSINE 6 MG/2 ML VIAL ONE (13:56)
[2022-04-24] MEDS ORDERED: ADENOSINE 6 MG/2 ML VIAL IVP ONE (14:00)
--- NOTE | 2022-04-24 14:00 | NUR ---
PT HR 197B/MIN SVT DR. GIL AT BED SIDE CONECTED PT O CARDIAC MONITER AND EKG PAD REINSERTED ADRIANAO PILARETER G 18 ON LT AC PATETENT WILL ADENOSINE 6 MG FAST IVP GIVEN PT CONNECTED TO EKG MASHINE PT RESPONDER HR SLOW DOWEN PT AWAKE AND ALERT FALLOW COMENNED SPOOKING WITH DOUGHTER CONDITION UP DATE
--- NOTE | 2022-04-24 14:25 | NUR ---
BLOOD DROW AND SENT TO LAB
[2022-04-24 14:33] LABS: BASOPHILS % (AUTO) 0.8 % (0.0-2.0); EOSINOPHILS % (AUTO) 1.9 % (0.0-6.0); HEMATOCRIT 40 % (39-51); HEMOGLOBIN 12.3 g/dL (13.5-17.5); LYMPHOCYTES # (AUTO) 1.3 K/uL (0.8-4.8); LYMPHOCYTES % (AUTO) 23.5 % (20.0-44.0); MEAN CORPUSCULAR HGB CONC 31 g/dl (31.0-36.0); MEAN CORPUSCULAR VOLUME 84 fL (80-96); MONOCYTES # (AUTO) 0.6 K/uL (0.1-1.30); MONOCYTES % (AUTO) 11.5 % (2.0-12.0); NEUTROPHILS # (AUTO) 3.3 K/uL (1.8-8.9); NEUTROPHILS % (AUTO) 62.3 % (43.0-81.0); PLATELET COUNT (AUTO) 238 K/uL (150-450); RED BLOOD CELL COUNT(AUTO) 4.79 MIL/uL (4.5-6.0); WHITE BLOOD COUNT (AUTO) 5.4 K/uL (4.3-11.0)
--- NOTE | 2022-04-24 14:35 | NUR ---
C XRAY DONE AT BED SIDE
[2022-04-24 14:48] LABS: CARBON DIOXIDE 24 mmol/L (21-32); CHLORIDE 108 mmol/L (98-107); CREATININE 1.4 mg/dL (0.6-1.3); GLUCOSE 126 mg/dL (74-106); POTASSIUM 4.2 mmol/L (3.5-5.1); SODIUM SERUM 142 mmol/L (136-145); UREA NITROGEN, BLOOD 20 mg/dL (7-18)
[2022-04-24 15:03] LABS: ALANINE AMINOTRANSFERASE 13 U/L (12-78); ALBUMIN 3.4 g/dL (3.4-5.0); ALKALINE PHOSPHATASE 98 U/L (46-116); ASPARTATE AMINOTRANSFERASE 16 U/L (15-37); BILIRUBIN,DIRECT 0.9 mg/dL (0.0-0.2); BILIRUBIN,TOTAL 2.4 mg/dL (0.2-1.0); TOTAL PROTEIN, SERUM 7.1 g/dL (6.4-8.2)
--- NOTE | 2022-04-24 15:12 | NUR ---
DR. HADDAD SPEAKING WITH DR. GIL.
[2022-04-24] MEDS ORDERED: RIVA10TA PO (15:28)
--- NOTE | 2022-04-24 16:00 | NUR ---
DINESES SOB OR CHEST PAIN NO PALPITTION
[2022-04-24] MEDS ORDERED: INSULIN REGULAR, HUMAN 100 UNIT/ML 3 ML VIAL SQ PRN (16:30)
[2022-04-24] MEDS ORDERED: HYDROCODONE/APAP 5/325MG TABLET PO PRN (16:30)
[2022-04-24] MEDS ORDERED: ACETAMINOPHEN 325 MG TABLET PO PRN (16:30)
[2022-04-24] MEDS ORDERED: DEXTROSE 50%-WATER 50 ML DISP.SYRIN IV PRN (16:30)
[2022-04-24] MEDS ORDERED: MAG HYDROX/AL HYDROX/SIMETH 30 ML UDC PO PRN (16:30)
[2022-04-24] MEDS ORDERED: Z GUARD REMEDY 4 OZ OINT TP PRN (16:30)
[2022-04-24] MEDS ORDERED: ONDANSETRON HCL/PF 4 MG/2 ML VIAL IVP PRN (16:30)
[2022-04-24] MEDS ORDERED: MAGNESIUM HYDROXIDE 30 ML UDC PO PRN (16:30)
--- NOTE | 2022-04-24 16:30 | NUR ---
WILDER FOR TELEMETRY BED
--- NOTE | 2022-04-24 16:58 | NUR ---
RN NOTE RECEIVED REPORT FROM MELIZA RAYA. PATIENT IS GOING TO BE ADMITTED TO TELE ROOM 119-2.
--- NOTE | 2022-04-24 17:02 | NUR ---
REPORT TO FREDA HAIDER. PT AWAITING TRANSFER TO FLOOR.
--- NOTE | 2022-04-24 17:17 | NUR ---
RN NOTE PATIENT ARRIVED TO UNIT VIA [facility] ALERT AND ORIENTED TIMES 4, ARABIC SPEAKING, UNDERSTANDS LITTLE LIBERIAN. IV ACCESS LAC #18G. VITALS TAKEN BP: 136/88;HR: 101, RR: 22, O2 SAT 97% ON 2 L NC. LEFT LEG EDEMA NOTED, PICTURE TAKEN AND PLACED IN CHART. BED LOCKED IN LOWEST POSITION, CALL LIGHT WITHIN REACH. ALL SAFETY MEASURES IN PLACE. WILL ENDORSE CONTINUITY OF CARE TO PLANT AND MACHINERY VALUER NURSE. PATIENT BELONGINGS SIGNED.
--- NOTE | 2022-04-24 18:50 | NUR ---
MELIZA NOTE DAUGHTER AT BEDSIDE , ALEXIS [phone]. STATES PATIENT IS BLEEDING Addendum: 04/24/22 at 1851 by FREDA BARRETT RN WHEN HE PASSES BOWELS FOR 4 DAYS.
[2022-04-24] MEDS: FUROSEMIDE 40 MG/4 ML VIAL IV SCH ×2 (18:58→21:04)
[2022-04-24] MEDS: METOPROLOL SUCCINATE 25 MG TAB.SR.24H PO SCH (18:59)
[2022-04-24] MEDS: BLOOD SUGAR DIAGNOSTIC 1 EACH STRIP IN SCH ×3 (18:59→21:16)
--- NOTE | 2022-04-24 19:16 | NUR ---
RN NOTE PATIENT REFUSED TO TAKE 50MG OF METROPOLOL, ONLY TOOK HALF DOSE OF 25MG. SON IN LAW, ALONA, IS AT BEDSIDE TRANSLATING.
--- NOTE | 2022-04-24 19:30 | NUR ---
RN CLOSING NOTE PATIENT A0X4, MARSHALLESE SPEAKING AND UNDERSTANDING, NEEDS CHANGEOVER OPERATOR. SON IN LAW ALONA AT BEDSIDE AT THIS TIME TRANSLATING. BREATHING ON 2L NC AT 96%. NO DISCOMFORT OR PAIN NOTED AT THIS TIME. HOB ELEVATED AT 40 DEGREES AT THIS TIME. BED LOCKED IN LOWEST POSITION. ALL SAFETY MEASURES IN PLACE. WILL ENDORSE CONTINUITY OF CARE TO OFFSET LABEL REWINDER NURSE.
--- NOTE | 2022-04-24 19:35 | NUR ---
RN OPENING NOTE RECEIVED PATIENT IN BED A0X4 ABLE TO MAKE NEEDS KNOWN. ON NASAL CANNULA 2L NC AT 98%. IV ACCESS ON LEFT AC #18 SALINE LOCK. MADE SURE PATIENT IS COMFORTABLE. PATIENT IS NOT IN DISTRESS. SO SOB. NO PALPITATION. SAFETY MEASURES IN PLACED; BED LOCKED IN LOWEST POSITION. CALL LIGHT AND BEDSIDE TABLE WITHIN PATIENT REACH.
[2022-04-24 20:00] VITALS: BP 132/89
--- NOTE | 2022-04-24 20:15 | NUR ---
RN NOTES PATIENT HEART RATE IS 180-190BPM. PER MORNING RN PATIENT HAS BEEN REFUSING HEART MEDICATIONS. WAS ABLE TO TALK TO THE PATIENT WITH THE HELP OF NURSE PUMPER GAUGER APPRENTICE JONG TO TRANSLATE ROMANIAN. EDUCATION ABOUT THE IMPORTANCE OF TAKING THE MEDICATIONS AND THE RISK OF NOT TAKING THEM IS GIVEN. PATIENT VERBALIZES UNDERSTANDING. CALLED DAUGHTER TL TO LET HER KNOW THAT HER DAD HAS BEEN REFUSING HEART MEDICATIONS AND HIS HEART RATE WENT UP TO 180-190BPM ASKED FOR HELP TO CONVINCE HIS DAD TO TAKE MEDICATIONS IN THE MORNING TO PREVENT ARRHYTHMIAS AND PALPITATIONS.
--- NOTE | 2022-04-24 23:56 | NUR ---
RN NOTES EDUCATION ABOUT CHF IS GIVEN WITH THE HELP OF BRYCE SUNSHINE WHO TRANSLATE MAORI. PATIENT EDUCATION ABOUT PREVENTING SELF EXHAUSTION IS GIVEN WELL. PATIENT IS PROVIDED WITH URINAL AND WAS OFFERED BEDSIDE COMMODE 3X. ENCOURAGED PATIENT TO USE CALL LIGHT WHEN HE HAVE THE URGE TO PEE OR FOR ANY ASSISTANCE NEEDED. PATIENT VERBALIZE UNDERSTANDING BUT STILL GO TO THE BATHROOM BY HIMSELF. PATIENT IS AT RISK FOR FALL DUE TO EXHAUSTION AND S/P LEFT LEG VEIN SURGERY.
[2022-04-25] VITALS: BP 125/79
[2022-04-25 04:00] VITALS: BP 149/94
[2022-04-25 06:43] LABS: BASOPHILS % (AUTO) 0.7 % (0.0-2.0); EOSINOPHILS % (AUTO) 2.6 % (0.0-6.0); HEMATOCRIT 40 % (39-51); HEMOGLOBIN 12.4 g/dL (13.5-17.5); LYMPHOCYTES # (AUTO) 1.5 K/uL (0.8-4.8); LYMPHOCYTES % (AUTO) 25.7 % (20.0-44.0); MEAN CORPUSCULAR HGB CONC 31 g/dl (31.0-36.0); MEAN CORPUSCULAR VOLUME 84 fL (80-96); MONOCYTES # (AUTO) 0.8 K/uL (0.1-1.30); MONOCYTES % (AUTO) 13.7 % (2.0-12.0); NEUTROPHILS # (AUTO) 3.3 K/uL (1.8-8.9); NEUTROPHILS % (AUTO) 57.3 % (43.0-81.0); PLATELET COUNT (AUTO) 241 K/uL (150-450); RED BLOOD CELL COUNT(AUTO) 4.78 MIL/uL (4.5-6.0); WHITE BLOOD COUNT (AUTO) 5.8 K/uL (4.3-11.0)
--- NOTE | 2022-04-25 06:43 | NUR ---
RN CLOSING NOTE PATIENT IN BED SLEEPING BUT EASILY AWAKEN WHEN CALLED BY NAME. A0X4 ABLE TO MAKE NEEDS KNOWN. ON NASAL CANNULA 2L NC AT 98%. IV ACCESS ON LEFT AC #18 SALINE LOCK. MADE SURE PATIENT IS COMFORTABLE. PATIENT IS NOT IN DISTRESS. SO SOB. PATIENT ON TELE MONITOR WITH A READING OF SINUS RHYTHM 84 WITH PAC. ALL DUE MEDICATIONS IS GIVEN. PATIENT EDUCATION ON IMPORTANCE OF TAKING CARDIAC MEDICATIONS AND RISK IF NOT TAKEN IS DONE WITH THE HELP OF BRYCE SUNSHINE DIRECTOR PLANS SINCE PATIENT IS INDONESIAN SPEAKING. PATIENT VERBALIZES UNDERSTANDING. ALL NEEDS ARE MET. SAFETY MEASURES IN PLACED; BED LOCKED IN LOWEST POSITION. CALL LIGHT AND BEDSIDE TABLE WITHIN PATIENT REACH. WILL ENDORSE TO NEXT SHIFT NURSE FOR CONTINUITY OF CARE.
[2022-04-25 07:15] LABS: CALCIUM, SERUM 9.3 mg/dL (8.5-10.1); CARBON DIOXIDE 23 mmol/L (21-32); CHLORIDE 107 mmol/L (98-107); CREATININE 1.4 mg/dL (0.6-1.3); GLUCOSE 94 mg/dL (74-106); MAGNESIUM 2.1 mg/dL (1.8-2.4); POTASSIUM 3.7 mmol/L (3.5-5.1); SODIUM SERUM 141 mmol/L (136-145); UREA NITROGEN, BLOOD 22 mg/dL (7-18)
--- NOTE | 2022-04-25 07:20 | NUR ---
CLINICAL HAEMATOLOGIST OPENING NOTES Receuevd pt awake in bed AOx3 Armenaian speaking. Pt is currently on 2L NC and tolerating it well. IV access on LAC 18G. HOB elevated to pts comfort. Siderails up at all times x2. Call light within reach. Will continue to monitor.
[2022-04-25 08:00] VITALS: BP 116/90
[2022-04-25] MEDS: PANTOPRAZOLE 40 MG TABLET.DR PO SCH (08:10)
[2022-04-25] MEDS: FUROSEMIDE 40 MG/4 ML VIAL IV SCH ×2 (08:14→21:21)
--- NOTE | 2022-04-25 08:45 | NUR ---
WELDING MACHINE OPERATOR THERMIT NOTES Pt refused Metoprolol medication. Offered multiple times with MELIZA Nash at bedside to translate. Explained risks and benefits of medication but pt still refused. CN made aware. notified.
[2022-04-25] MEDS: METOPROLOL SUCCINATE 25 MG TAB.SR.24H PO SCH (08:51)
--- NOTE | 2022-04-25 08:55 | NUR ---
DEWATERER OPERATOR NOTES Rechecked pt and HR is at 95 resting in bed. Will continue to monitor.
[2022-04-25] MEDS ORDERED: RIVAROXABAN 10 MG TABLET PO SCH (09:00)
[2022-04-25] MEDS ORDERED: ADENOSINE 6 MG/2 ML VIAL IVP ONE ×2 (11:00)
--- NOTE | 2022-04-25 11:00 | NUR ---
telemetry shows SVT rate of 192 JEFFY HOOKS awamaite notified and orders obtained medicated with adenosine 6mg ivp as ordered
--- NOTE | 2022-04-25 11:00 | NUR ---
PILLOWCASE CLEANER NOTES Pts HR is at [address] Blackburn notified and ordered adenosine 6mg IVP now. Administered by MELIZA Harmon. Pt HR went down to 105.
--- NOTE | 2022-04-25 11:05 | NUR ---
HR went down SR with rate 99
--- NOTE | 2022-04-25 11:09 | NUR ---
SLOT FLOOR PERSON NOTES Dr. Navarro at bedside talking with pt. Informed that pt is refusing metoprolol and dr said he's aware with no new orders at this time. Also informed MD of right leg swelling and MD said he is aware with no new orders at this time. Pt HR is at 100./
--- NOTE | 2022-04-25 11:11 | NUR ---
seen by dr shanks at present time
[2022-04-25] MEDS: BLOOD SUGAR DIAGNOSTIC 1 EACH STRIP IN SCH ×3 (11:36→21:21)
[2022-04-25 12:00] VITALS: BP 126/80
[2022-04-25] MEDS ORDERED: ADENOSINE 6 MG/2 ML VIAL IVP PRN (12:00)
[2022-04-25 15:42] LABS: BILIRUBIN,URINE NEGATIVE (NEGATIVE); COLOR,URINE YELLOW (YELLOW); LEUKOCYTE ESTERASE ,URINE NEGATIVE (NEGATIVE); NITRITE, URINE NEGATIVE (NEGATIVE); PROTEIN,URINE NEGATIVE (NEGATIVE); UGLUCOSE NEGATIVE (NEGATIVE); UROBILINOGEN,URINE 0.2 EU/dL (0.2)
[2022-04-25 15:50] LABS: CREATININE, URINE < 13.0 MG/DL (30.0-125.0); URINE SODIUM, RANDOM 125 mmol/l (40-220)
[2022-04-25 16:00] VITALS: BP 149/99
[2022-04-25] MEDS ORDERED: METOPROLOL SUCCINATE 25 MG TAB.SR.24H PO SCH (17:00)
[2022-04-25] MEDS: MULTAQ 400 MG PO SCH (17:21)
--- NOTE | 2022-04-25 17:32 | NUR ---
LITERATURE PROFESSOR NOTES Relayed US of abdomen results to Dr. Navarro with no new orders at this time.
--- NOTE | 2022-04-25 18:23 | NUR ---
MIDDLE SCHOOL PE TEACHER CLOSING NOTES All due meds and tx given as ordered. Pt tolerated everything well. All needs attended to. Pts HR is at 103 sinus tachycardia on the HR monitor. Will endorse to oncoming nurse.
--- NOTE | 2022-04-25 19:30 | NUR ---
TUBING OILER OPENING NOTE RECEIVED PATIENT IN BED AWAKE. A/0X4 ABLE TO MAKE NEEDS KNOWN. ON NASAL CANNULA 2L NC AT 98%. IV ACCESS ON LEFT AC #18 SALINE LOCK. PATIENT IS NOT IN DISTRESS. SO SOB. PATIENT ON TELE MONITOR WITH A READING OF SINUS RHYTHM 91, ALL NEEDS ATTENDED, SAFETY MEASURES IN PLACED; BED LOCKED IN LOWEST POSITION. CALL LIGHT AND BEDSIDE TABLE WITHIN PATIENT REACH. WILL CONTINUE TO MONITOR THROUGHOUT THE SHIFT.
[2022-04-25 20:00] VITALS: BP 131/98
[2022-04-26] VITALS: BP 140/89
[2022-04-26] MEDS ORDERED: ZOLPIDEM TARTRATE 10 MG TABLET PO PRN (00:30)
[2022-04-26 04:00] VITALS: BP 159/77
--- NOTE | 2022-04-26 07:15 | NUR ---
RN OPENING NOTE RECEIVED PATIENT IN BED, AWAKE, A0X4 ABLE TO MAKE NEEDS KNOWN. ON NASAL CANNULA 2L NC AT 98%. IV ACCESS ON LEFT AC #18 SALINE LOCK. PT NOT IN DISTRESS, NO SOB. SAFETY MEASURES IN PLACED; BED LOCKED IN LOWEST POSITION. CALL LIGHT AND BEDSIDE TABLE WITHIN PATIENT REACH.
[2022-04-26] MEDS: MULTAQ 400 MG PO SCH (07:25)
[2022-04-26] MEDS: BLOOD SUGAR DIAGNOSTIC 1 EACH STRIP IN SCH ×4 (07:25→21:29)
[2022-04-26] MEDS: PANTOPRAZOLE 40 MG TABLET.DR PO SCH (07:25)
[2022-04-26 08:00] VITALS: BP 134/91
[2022-04-26] MEDS: FUROSEMIDE 40 MG/4 ML VIAL IV SCH ×2 (08:54→21:21)
[2022-04-26 10:02] LABS: BASOPHILS % (AUTO) 0.9 % (0.0-2.0); EOSINOPHILS % (AUTO) 1.6 % (0.0-6.0); HEMATOCRIT 41 % (39-51); HEMOGLOBIN 12.7 g/dL (13.5-17.5); LYMPHOCYTES # (AUTO) 1.2 K/uL (0.8-4.8); LYMPHOCYTES % (AUTO) 23.5 % (20.0-44.0); MEAN CORPUSCULAR HGB CONC 31 g/dl (31.0-36.0); MEAN CORPUSCULAR VOLUME 83 fL (80-96); MONOCYTES # (AUTO) 0.6 K/uL (0.1-1.30); MONOCYTES % (AUTO) 12.3 % (2.0-12.0); NEUTROPHILS # (AUTO) 3.1 K/uL (1.8-8.9); NEUTROPHILS % (AUTO) 61.7 % (43.0-81.0); PLATELET COUNT (AUTO) 252 K/uL (150-450); RED BLOOD CELL COUNT(AUTO) 4.91 MIL/uL (4.5-6.0); WHITE BLOOD COUNT (AUTO) 5.1 K/uL (4.3-11.0)
[2022-04-26 10:07] LABS: CALCIUM, SERUM 9.2 mg/dL (8.5-10.1); CARBON DIOXIDE 26 mmol/L (21-32); CHLORIDE 105 mmol/L (98-107); CREATININE 1.5 mg/dL (0.6-1.3); GLUCOSE 136 mg/dL (74-106); POTASSIUM 3.4 mmol/L (3.5-5.1); SODIUM SERUM 142 mmol/L (136-145); UREA NITROGEN, BLOOD 22 mg/dL (7-18)
[2022-04-26 10:13] LABS: ALANINE AMINOTRANSFERASE 12 U/L (12-78); ALBUMIN 3.6 g/dL (3.4-5.0); ALKALINE PHOSPHATASE 94 U/L (46-116); ASPARTATE AMINOTRANSFERASE 15 U/L (15-37); BILIRUBIN,TOTAL 2.7 mg/dL (0.2-1.0); TOTAL PROTEIN, SERUM 7.7 g/dL (6.4-8.2)
[2022-04-26] MEDS ORDERED: POTASSIUM CHLORIDE 20 MEQ TAB.PRT.SR PO ONE (10:30)
[2022-04-26 12:00] VITALS: BP 127/80
[2022-04-26 16:00] VITALS: BP 145/89
--- NOTE | 2022-04-26 16:42 | NUR ---
PATIENTS BS LEVEL IS 148. PT REFUSE INSULIN.
--- NOTE | 2022-04-26 19:03 | NUR ---
RN CLOSING NOTE PT SITTING IN CHAIR, O2 VIA NASAL CANNULA 2L NC SAT 98%. IV ACCESS LEFT AC #18 SALINE LOCK. NO DISTRESS, NO SOB NOTED. CALL LIGHT AT BEDSIDE WITHIN PATIENT REACH. WILL ENDORSE TO THE CHAIR SPRING ASSEMBLER FOR GILLIAN.
--- NOTE | 2022-04-26 19:30 | NUR ---
RN OPENING NOTE RECEIVED PATIENT IN BED, AWAKE, A/0 X 4, ABLE TO VERBALIZE NEEDS. SPEAKS MOSTLY URDU BUT CAN SPEAK A BIT OF SINHALA, GRANDSON ON BEDSIDE. CURRENTLY ON 2L NC, TOLERATING WELL, SATING AT 94%. PT ALSO TOLERATES RA AT TIMES. NO S/SX OF ACUTE RESPI DISTRESS NOTED AT THIS TIME. NO SOB, BREATHING IS EVEN AND UNLABORED. PILOT CONTROL OPERATOR HELPER READS SR, HR IN 80s. IV ACCESS ON LEFT AC #18G, SALINE LOCK. ALL SAFETY MEASURES IN PLACE: BED LOCKED IN LOWEST POSITION. BED ALARM ON, SR UP X 2. CALL LIGHT AND BEDSIDE TABLE WITHIN REACH. WILL CONTINUE TO MONITOR PT.
[2022-04-26 20:00] VITALS: BP 147/82
[2022-04-27] VITALS: BP 140/91
[2022-04-27 04:00] VITALS: BP 129/91
--- NOTE | 2022-04-27 06:13 | NUR ---
RN CLOSING NOTE NO SIGNIFICANT CHANGE T/O THE NIGHT. PT REMAINED STABLE WITH NO S/SX OF ACUTE DISTRESS NOTED. ALL DUE MEDS GIVEN. NEEDS MET. WILL ENDORSE TO AM SHIFT NURSE FOR GILLIAN.
[2022-04-27 06:53] LABS: BASOPHILS # (AUTO) 0.1 K/uL (0.0-0.2); BASOPHILS % (AUTO) 1.1 % (0.0-2.0); EOSINOPHILS % (AUTO) 1.7 % (0.0-6.0); HEMATOCRIT 39 % (39-51); HEMOGLOBIN 12.2 g/dL (13.5-17.5); LYMPHOCYTES # (AUTO) 1.6 K/uL (0.8-4.8); LYMPHOCYTES % (AUTO) 28.3 % (20.0-44.0); MEAN CORPUSCULAR HGB CONC 32 g/dl (31.0-36.0); MEAN CORPUSCULAR VOLUME 83 fL (80-96); MONOCYTES # (AUTO) 0.8 K/uL (0.1-1.30); MONOCYTES % (AUTO) 13.1 % (2.0-12.0); NEUTROPHILS # (AUTO) 3.2 K/uL (1.8-8.9); NEUTROPHILS % (AUTO) 55.8 % (43.0-81.0); PLATELET COUNT (AUTO) 248 K/uL (150-450); RED BLOOD CELL COUNT(AUTO) 4.68 MIL/uL (4.5-6.0); WHITE BLOOD COUNT (AUTO) 5.8 K/uL (4.3-11.0)
[2022-04-27 06:57] LABS: ALANINE AMINOTRANSFERASE 12 U/L (12-78); ALBUMIN 3.6 g/dL (3.4-5.0); ALKALINE PHOSPHATASE 89 U/L (46-116); ASPARTATE AMINOTRANSFERASE 13 U/L (15-37); BILIRUBIN,TOTAL 2.8 mg/dL (0.2-1.0); CALCIUM, SERUM 9.2 mg/dL (8.5-10.1); CARBON DIOXIDE 25 mmol/L (21-32); CHLORIDE 104 mmol/L (98-107); CREATININE 1.6 mg/dL (0.6-1.3); GLUCOSE 101 mg/dL (74-106); MAGNESIUM 2.2 mg/dL (1.8-2.4); POTASSIUM 3.4 mmol/L (3.5-5.1); SODIUM SERUM 141 mmol/L (136-145); TOTAL PROTEIN, SERUM 7.5 g/dL (6.4-8.2); UREA NITROGEN, BLOOD 23 mg/dL (7-18)
[2022-04-27] MEDS: BLOOD SUGAR DIAGNOSTIC 1 EACH STRIP IN SCH ×2 (07:45→11:13)
--- NOTE | 2022-04-27 07:50 | NUR ---
RN OPENING NOTE RECEIVED PATIENT IN BED, AWAKE, A/0 X 4, ABLE TO VERBALIZE NEEDS. SPEAKS MOSTLY PASHTO BUT CAN SPEAK A BIT OF MALTESE. CURRENTLY ON 2L NC, TOLERATING WELL, NO S/SX OF ACUTE RESPI DISTRESS NOTED AT THIS TIME. NO SOB, BREATHING IS EVEN AND UNLABORED. DIRECTOR INDUSTRIAL RELATIONS READS ST HR 106, NO C/O OF CHEST PAIN, DENIES ANY PAIN AT THIS MOMENT. IV ACCESS ON LEFT AC #18G,PATENT AND INTACT, FLUSHES WELL, ON SALINE LOCK. ALL SAFETY MEASURES IN PLACE: BED LOCKED IN LOWEST POSITION. BED ALARM ON, SR UP X 2. CALL LIGHT AND BEDSIDE TABLE WITHIN REACH. PLAN OF CARE CONTINUE.
[2022-04-27] MEDS: PANTOPRAZOLE 40 MG TABLET.DR PO SCH (07:59)
[2022-04-27 08:00] VITALS: BP 130/75
[2022-04-27] MEDS: FUROSEMIDE 40 MG/4 ML VIAL IV SCH (08:00)
[2022-04-27] MEDS: POTASSIUM CL. PREMIX PERIPHER. 50 ML IV SCH ×2 (08:50→09:51)
[2022-04-27] MEDS ORDERED: POTASSIUM CHLORIDE 20 MEQ POWDER PACKET PO SCH (09:00)
[2022-04-27 12:00] VITALS: BP 132/88
--- NOTE | 2022-04-27 12:24 | NUR ---
SEEN BY ROLANDO Terrazas HARP REGULATOR AT BEDSIDE, WITH ROSINA HAIDER FEEDER TENDER, INFORMED PATIENT THAT HE WILL BE DISCHARGED HOME TODAY, PATIENT CONFIRMED UNDERSTANDING.
[2022-04-27] MEDS ORDERED: FUROSEMIDE 20 MG/2 ML VIAL IV SCH (13:00)
--- NOTE | 2022-04-27 14:55 | NUR ---
CLARIFIED ORDERED WITH DR. SIMS FOR LASIX 60MG X1 NOW, GIVE PRIOR TO DC, NOTED AND CARRIED OUT, ROLANDO JACKSON MADE AWARE.
[2022-04-27] MEDS ORDERED: FUROSEMIDE 40 MG/4 ML VIAL IV ONE (15:00)
--- NOTE | 2022-04-27 16:13 | NUR ---
DISCHARGE SUMMARY INSTRUCTIONS REVIEWED WITH THE PATIENT AND AT THE BEDSIDE, FAMILY MEMBER OVER THE PHONE TRANSLATING, CONFIRMED UNDERSTANDING, RELEASED ALL PERSONAL BELONGINGS AND MEDICATIONS TO THE PATIENT, RELEASED ALL DISCHARGE PAPER WORKS TO THE PATIENT. PATIENT SIGNED ALL PAPER WORKS. WHEELED PATIENT TO THE LOBBY BY BRYCE.
== END 2022-04-27 16:14 | disposition home or self-care (01) | DRG 308 ==
LOC: ER 14:02 → TELE1 17:14
PROVIDERS: ATTEND Registered Nurse
DX: I47.1 Supraventricular tachycardia (principal); I50.33 Acute on chronic diastolic (congestive) heart failure; I13.0 Hypertensive heart and chronic kidney disease with heart failure and stage 1 through stage 4 chronic kidney disease, or unspecified chronic kidney disease; I31.1 Chronic constrictive pericarditis; J90 Pleural effusion, not elsewhere classified; I31.39 Other pericardial effusion (noninflammatory); R18.8 Other ascites; D64.9 Anemia, unspecified; E11.22 Type 2 diabetes mellitus with diabetic chronic kidney disease; E66.9 Obesity, unspecified; E78.5 Hyperlipidemia, unspecified; E87.6 Hypokalemia; F41.9 Anxiety disorder, unspecified; N18.2 Chronic kidney disease, stage 2 (mild); Z20.822 Contact with and (suspected) exposure to COVID-19; Z79.01 Long term (current) use of anticoagulants; Z91.199 Patient's noncompliance with other medical treatment and regimen due to unspecified reason; F17.210 Nicotine dependence, cigarettes, uncomplicated; N40.0 Benign prostatic hyperplasia without lower urinary tract symptoms; I48.91 Unspecified atrial fibrillation; K74.60 Unspecified cirrhosis of liver; Z68.34 Body mass index [BMI] 34.0-34.9, adult; E11.51 Type 2 diabetes mellitus with diabetic peripheral angiopathy without gangrene; I70.0 Atherosclerosis of aorta
CPT/HCPCS: 36415; 71045-TC; 71250-TC; 76700-TC; 80048-TC; 80053-TC; 80076-TC; 82570-TC; 82962-TC; 83735-TC; 83880; 84100-TC; 84300-TC; 84484-TC; 85025-TC; 85610-TC; 85652-TC; 85730-TC; 86140-TC; 87081-TC; 93307-TC; 97112-TC; 97116-TC; 97530-TC; A4223; C9803; G0378; J0153; J1815; J1940; J3480; J7050

== ENCOUNTER → 2023-07-31 | Emergency (ER) | payer MEDICARE, BC ==
[~2023-07-31] VITALS: Ht 172.7 cm; Wt 72.6 kg
[~2023-07-31] MED LIST changes: -APIX2.5T PO; -EMPA10TA PO; -ERGO500093 PO; -ESOM40CA PO; -FAMO40TA7 PO; -FLUT16SP16; +FUROSEMIDE 40 MG/4 ML VIAL IV ONE; -HYDR28.316 RC; -IBUP-1957 PO; -METF-440 PO; -METO50TA16 PO; -NYST30CR3 TD; -PROM118S5 PO; +RIVA10TA PO; -ROSU20TA32 PO
[2023-07-31 01:25] LABS: APPEARANCE,URINE CLEAR (CLEAR); BILIRUBIN,URINE NEGATIVE (NEGATIVE); BLOOD, URINE NEGATIVE Ery/uL (NEGATIVE); COLOR,URINE YELLOW (YELLOW); KETONES,URINE NEGATIVE (NEGATIVE); LEUKOCYTE ESTERASE ,URINE NEGATIVE (NEGATIVE); NITRITE, URINE NEGATIVE (NEGATIVE); PROTEIN,URINE NEGATIVE (NEGATIVE); UGLUCOSE NEGATIVE (NEGATIVE); UROBILINOGEN,URINE 0.2 EU/dL (0.2)
[2023-07-31 02:06] LABS: BASOPHILS # (AUTO) 0.1 K/uL (0.0-0.2); BASOPHILS % (AUTO) 1.1 % (0.0-2.0); EOSINOPHILS % (AUTO) 0.6 % (0.0-6.0); HEMATOCRIT 45 % (39-51); HEMOGLOBIN 14.7 g/dL (13.5-17.5); LYMPHOCYTES # (AUTO) 1.3 K/uL (0.8-4.8); LYMPHOCYTES % (AUTO) 17.1 % (20.0-44.0); MEAN CORPUSCULAR HEMOGLOBIN 30 PG (26.0-33.0); MEAN CORPUSCULAR HGB CONC 33 g/dl (31.0-36.0); MEAN CORPUSCULAR VOLUME 90 fL (80-96); MONOCYTES # (AUTO) 0.8 K/uL (0.1-1.30); MONOCYTES % (AUTO) 10.4 % (2.0-12.0); NEUTROPHILS # (AUTO) 5.3 K/uL (1.8-8.9); NEUTROPHILS % (AUTO) 70.8 % (43.0-81.0); PLATELET COUNT (AUTO) 205 K/uL (150-450); RED BLOOD CELL COUNT(AUTO) 4.94 MIL/uL (4.5-6.0); RED CELL DISTRIBUTION WIDTH 17.2 % (11.5-15.0); WHITE BLOOD COUNT (AUTO) 7.5 K/uL (4.3-11.0)
[2023-07-31 02:24] LABS: CALCIUM, SERUM 8.7 mg/dL (8.5-10.1); CARBON DIOXIDE 22 mmol/L (21-32); CHLORIDE 103 mmol/L (98-107); CREATININE 2.5 mg/dL (0.6-1.3); GLUCOSE 112 mg/dL (74-106); POTASSIUM 4.7 mmol/L (3.5-5.1); SODIUM SERUM 134 mmol/L (136-145); UREA NITROGEN, BLOOD 55 mg/dL (7-18)
[2023-07-31 02:37] LABS: LACTIC ACID 1.2 mmol/L (0.4-2.0)
[2023-07-31 02:39] LABS: ALANINE AMINOTRANSFERASE 15 U/L (12-78); ALBUMIN 2.4 g/dL (3.4-5.0); ALKALINE PHOSPHATASE 134 U/L (46-116); ASPARTATE AMINOTRANSFERASE 19 U/L (15-37); BILIRUBIN,TOTAL 1.1 mg/dL (0.2-1.0); NT-PRO BNP 2362 pg/mL (0-125); TOTAL PROTEIN, SERUM 6.3 g/dL (6.4-8.2)
[2023-07-31 03:31] VITALS: BP 119/77; TEMP 98.2; O2SAT 96
== END | disposition home or self-care (01) ==
LOC: ER 00:19
DX: I47.10 Supraventricular tachycardia, unspecified (principal); I11.0 Hypertensive heart disease with heart failure; I50.9 Heart failure, unspecified; E78.5 Hyperlipidemia, unspecified; E11.9 Type 2 diabetes mellitus without complications; Z98.890 Other specified postprocedural states; Z79.899 Other long term (current) drug therapy
CPT/HCPCS: 36415; 71045-TC; 76870-TC; 80053-TC; 83605-TC; 83880; 84484-TC; 85025-TC

== ENCOUNTER 2024-01-10 14:22 | Inpatient (IN) | payer MEDICARE, OTHER ==
[~2024-01-10] VITALS: Ht 167.6 cm; Wt 77.1 kg
[~2024-01-10 14:22] MED LIST changes: -FUROSEMIDE 40 MG/4 ML VIAL IV ONE
[2024-01-10 16:30] LABS: BASOPHILS # (AUTO) 0.1 K/uL (0.0-0.2); BASOPHILS % (AUTO) 2.2 % (0.0-2.0); EOSINOPHILS # (AUTO) 0.1 K/uL (0.0-0.7); EOSINOPHILS % (AUTO) 1.7 % (0.0-6.0); HEMATOCRIT 45 % (39-51); HEMOGLOBIN 14.6 g/dL (13.5-17.5); LYMPHOCYTES # (AUTO) 0.8 K/uL (0.8-4.8); LYMPHOCYTES % (AUTO) 14.1 % (20.0-44.0); MEAN CORPUSCULAR HEMOGLOBIN 30 PG (26.0-33.0); MEAN CORPUSCULAR HGB CONC 33 g/dl (31.0-36.0); MEAN CORPUSCULAR VOLUME 93 fL (80-96); MONOCYTES # (AUTO) 0.6 K/uL (0.1-1.30); MONOCYTES % (AUTO) 11.3 % (2.0-12.0); NEUTROPHILS % (AUTO) 70.7 % (43.0-81.0); PLATELET COUNT (AUTO) 281 K/uL (150-450); RED BLOOD CELL COUNT(AUTO) 4.82 MIL/uL (4.5-6.0); RED CELL DISTRIBUTION WIDTH 15.8 % (11.5-15.0); WHITE BLOOD COUNT (AUTO) 5.7 K/uL (4.3-11.0)
[2024-01-10 16:45] LABS: INR 1.24 (0.91-1.10); PARTIAL THROMBOPLASTIN TIME 27.7 SEC (24.3-34.3); PROTHROMBIN TIME 12.7 SECS (9.2-11.1)
[2024-01-10] MEDS: FUROSEMIDE 20 MG/2 ML VIAL IV ONE (16:50)
[2024-01-10 16:52] LABS: LACTIC ACID 1.4 mmol/L (0.4-2.0)
[2024-01-10 16:53] LABS: CALCIUM, SERUM 8.2 mg/dL (8.5-10.1); CARBON DIOXIDE 30 mmol/L (21-32); CHLORIDE 102 mmol/L (98-107); GLUCOSE 102 mg/dL (74-106); POTASSIUM 3.8 mmol/L (3.5-5.1); SODIUM SERUM 138 mmol/L (136-145)
[2024-01-10 16:54] LABS: ALBUMIN 2.3 g/dL (3.4-5.0); ALKALINE PHOSPHATASE 143 U/L (46-116); ASPARTATE AMINOTRANSFERASE 15 U/L (15-37); CREATININE 2.2 mg/dL (0.6-1.3)
[2024-01-10 16:55] LABS: TOTAL PROTEIN, SERUM 6.2 g/dL (6.4-8.2); UREA NITROGEN, BLOOD 39 mg/dL (7-18)
[2024-01-10] MEDS ORDERED: BUME2TAB7 PO (16:56)
[2024-01-10] MEDS ORDERED: SPIR25TA6 PO (16:56)
[2024-01-10] MEDS: VANCOMYCIN 1 GM in IV D5W 250 ML IV ONE (17:00)
[2024-01-10 17:04] LABS: BILIRUBIN,DIRECT 0.3 mg/dL (0.0-0.2)
[2024-01-10 17:05] LABS: ALANINE AMINOTRANSFERASE 14 U/L (12-78); NT-PRO BNP 2515 pg/mL (0-125)
[2024-01-10 17:19] LABS: APPEARANCE,URINE Clear (CLEAR); BILIRUBIN,URINE Negative (NEGATIVE); BLOOD, URINE Negative Ery/uL (NEGATIVE); COLOR,URINE YELLOW (YELLOW); KETONES,URINE Negative (NEGATIVE); LEUKOCYTE ESTERASE ,URINE Negative (NEGATIVE); NITRITE, URINE Negative (NEGATIVE); PROTEIN,URINE Negative (NEGATIVE); UGLUCOSE Negative (NEGATIVE); UROBILINOGEN,URINE 0.2 EU/dL (0.2)
[2024-01-10] MEDS ORDERED: ZOLPIDEM TARTRATE 5 MG TABLET PO PRN (18:00)
[2024-01-10] MEDS ORDERED: ACETAMINOPHEN 325 MG TABLET PO PRN (18:00)
[2024-01-10] MEDS ORDERED: MAGNESIUM HYDROXIDE 30 ML UDC PO PRN (18:00)
[2024-01-10] MEDS ORDERED: Z GUARD REMEDY 4 OZ OINT TP PRN (18:00)
[2024-01-10] MEDS ORDERED: MAG HYDROX/AL HYDROX/SIMETH 30 ML UDC PO PRN (18:00)
[2024-01-10] MEDS ORDERED: BUMETANIDE INJ 4 MG in IV NS 0.9% 24 ML IV ONE (18:30)
[2024-01-10] MEDS: CEFTRIAXONE 1 G in IV D5W 50 ML IV SCH (19:30)
[2024-01-10] MEDS: FUROSEMIDE 40 MG/4 ML VIAL IV SCH (19:39)
[2024-01-10 20:00] VITALS: BP 114/80; TEMP 98.1; O2SAT 96
[2024-01-10] MEDS: VANCOMYCIN 500 MG in IV D5W 100ml IV ONE (20:40)
[2024-01-11] MEDS: FUROSEMIDE 40 MG/4 ML VIAL IV SCH (04:23)
[2024-01-11 06:54] LABS: BASOPHILS # (AUTO) 0.1 K/uL (0.0-0.2); BASOPHILS % (AUTO) 0.9 % (0.0-2.0); EOSINOPHILS # (AUTO) 0.1 K/uL (0.0-0.7); EOSINOPHILS % (AUTO) 1.8 % (0.0-6.0); HEMATOCRIT 43 % (39-51); HEMOGLOBIN 13.9 g/dL (13.5-17.5); LYMPHOCYTES # (AUTO) 0.7 K/uL (0.8-4.8); LYMPHOCYTES % (AUTO) 12.5 % (20.0-44.0); MEAN CORPUSCULAR HEMOGLOBIN 30 PG (26.0-33.0); MEAN CORPUSCULAR HGB CONC 33 g/dl (31.0-36.0); MEAN CORPUSCULAR VOLUME 91 fL (80-96); MONOCYTES # (AUTO) 0.7 K/uL (0.1-1.30); MONOCYTES % (AUTO) 12.4 % (2.0-12.0); NEUTROPHILS # (AUTO) 4.1 K/uL (1.8-8.9); NEUTROPHILS % (AUTO) 72.4 % (43.0-81.0); PLATELET COUNT (AUTO) 257 K/uL (150-450); RED BLOOD CELL COUNT(AUTO) 4.68 MIL/uL (4.5-6.0); RED CELL DISTRIBUTION WIDTH 15.9 % (11.5-15.0); WHITE BLOOD COUNT (AUTO) 5.6 K/uL (4.3-11.0)
[2024-01-11 06:58] LABS: ALANINE AMINOTRANSFERASE 12 U/L (12-78); ALBUMIN 2.2 g/dL (3.4-5.0); ALKALINE PHOSPHATASE 147 U/L (46-116); ASPARTATE AMINOTRANSFERASE 14 U/L (15-37); BILIRUBIN,TOTAL 0.7 mg/dL (0.2-1.0); CALCIUM, SERUM 8.3 mg/dL (8.5-10.1); CARBON DIOXIDE 27 mmol/L (21-32); CHLORIDE 102 mmol/L (98-107); CREATININE 2.1 mg/dL (0.6-1.3); GLUCOSE 106 mg/dL (74-106); MAGNESIUM 2.2 mg/dL (1.8-2.4); PHOSPHORUS 3.5 mg/dL (2.5-4.9); POTASSIUM 3.5 mmol/L (3.5-5.1); SODIUM SERUM 138 mmol/L (136-145); TOTAL PROTEIN, SERUM 6.1 g/dL (6.4-8.2); UREA NITROGEN, BLOOD 37 mg/dL (7-18)
[2024-01-11 07:00] VITALS: BP 120/78; TEMP 97.5; O2SAT 96
[2024-01-11] MEDS: POTASSIUM CHLORIDE 20 MEQ TAB.PRT.SR PO SCH (09:32)
[2024-01-11] MEDS: FUROSEMIDE 100 MG/10 ML VIAL IV SCH (09:32)
[2024-01-11] MEDS: CLOTRIMAZOLE/BETAMETASONE DIPROPIONATE 15 GM TUBE TP SCH (14:30)
[2024-01-11 16:00] VITALS: BP 121/85; TEMP 97.7; O2SAT 95
[2024-01-11] MEDS: VANCOMYCIN 750 MG in IV D5W 250 ML IV SCH (17:49)
[2024-01-11 20:00] VITALS: BP 129/81; TEMP 97.9; O2SAT 96
[2024-01-12 06:39] LABS: BASOPHILS # (AUTO) 0.1 K/uL (0.0-0.2); BASOPHILS % (AUTO) 1.1 % (0.0-2.0); EOSINOPHILS # (AUTO) 0.1 K/uL (0.0-0.7); EOSINOPHILS % (AUTO) 1.8 % (0.0-6.0); HEMATOCRIT 40 % (39-51); HEMOGLOBIN 13.5 g/dL (13.5-17.5); LYMPHOCYTES # (AUTO) 0.8 K/uL (0.8-4.8); LYMPHOCYTES % (AUTO) 14.7 % (20.0-44.0); MEAN CORPUSCULAR HEMOGLOBIN 30 PG (26.0-33.0); MEAN CORPUSCULAR HGB CONC 34 g/dl (31.0-36.0); MEAN CORPUSCULAR VOLUME 90 fL (80-96); MONOCYTES # (AUTO) 0.7 K/uL (0.1-1.30); MONOCYTES % (AUTO) 12.8 % (2.0-12.0); NEUTROPHILS # (AUTO) 3.7 K/uL (1.8-8.9); NEUTROPHILS % (AUTO) 69.6 % (43.0-81.0); PLATELET COUNT (AUTO) 244 K/uL (150-450); RED BLOOD CELL COUNT(AUTO) 4.47 MIL/uL (4.5-6.0); RED CELL DISTRIBUTION WIDTH 15.6 % (11.5-15.0); WHITE BLOOD COUNT (AUTO) 5.3 K/uL (4.3-11.0)
[2024-01-12 07:01] LABS: ALANINE AMINOTRANSFERASE 11 U/L (12-78); ALBUMIN 2.1 g/dL (3.4-5.0); ALKALINE PHOSPHATASE 126 U/L (46-116); ASPARTATE AMINOTRANSFERASE 12 U/L (15-37); BILIRUBIN,TOTAL 0.9 mg/dL (0.2-1.0); CALCIUM, SERUM 8.2 mg/dL (8.5-10.1); CARBON DIOXIDE 29 mmol/L (21-32); CHLORIDE 101 mmol/L (98-107); CREATINE KINASE, TOTAL 21 U/L (39-308); GLUCOSE 101 mg/dL (74-106); MAGNESIUM 2.2 mg/dL (1.8-2.4); PHOSPHORUS 3.9 mg/dL (2.5-4.9); POTASSIUM 3.8 mmol/L (3.5-5.1); SODIUM SERUM 135 mmol/L (136-145); UREA NITROGEN, BLOOD 39 mg/dL (7-18)
[2024-01-12 07:30] VITALS: BP 107/81; TEMP 98.1; O2SAT 100
[2024-01-12 08:00] VITALS: BP 123/84; TEMP 98.1; O2SAT 100
[2024-01-12] MEDS: POTASSIUM CHLORIDE 20 MEQ TAB.PRT.SR PO SCH (08:29)
[2024-01-12] MEDS: FUROSEMIDE 100 MG/10 ML VIAL IV SCH (08:29)
[2024-01-12 16:00] VITALS: BP 130/84; TEMP 97.9; O2SAT 96
[2024-01-12 20:00] VITALS: BP 128/76; TEMP 98.2; O2SAT 95
[2024-01-13] MEDS: TRAMADOL HCL 50 MG TABLET PO PRN (00:44)
[2024-01-13 07:09] LABS: BASOPHILS # (AUTO) 0.1 K/uL (0.0-0.2); BASOPHILS % (AUTO) 2.2 % (0.0-2.0); EOSINOPHILS # (AUTO) 0.1 K/uL (0.0-0.7); EOSINOPHILS % (AUTO) 1.8 % (0.0-6.0); HEMATOCRIT 41 % (39-51); HEMOGLOBIN 13.4 g/dL (13.5-17.5); LYMPHOCYTES # (AUTO) 0.7 K/uL (0.8-4.8); LYMPHOCYTES % (AUTO) 12.3 % (20.0-44.0); MEAN CORPUSCULAR HEMOGLOBIN 30 PG (26.0-33.0); MEAN CORPUSCULAR HGB CONC 33 g/dl (31.0-36.0); MEAN CORPUSCULAR VOLUME 91 fL (80-96); MONOCYTES # (AUTO) 0.8 K/uL (0.1-1.30); MONOCYTES % (AUTO) 15.3 % (2.0-12.0); NEUTROPHILS # (AUTO) 3.6 K/uL (1.8-8.9); NEUTROPHILS % (AUTO) 68.4 % (43.0-81.0); PLATELET COUNT (AUTO) 236 K/uL (150-450); RED BLOOD CELL COUNT(AUTO) 4.48 MIL/uL (4.5-6.0); RED CELL DISTRIBUTION WIDTH 15.6 % (11.5-15.0); WHITE BLOOD COUNT (AUTO) 5.3 K/uL (4.3-11.0)
[2024-01-13 07:30] VITALS: BP 101/59; TEMP 97.6; O2SAT 97
[2024-01-13 07:49] LABS: ALANINE AMINOTRANSFERASE 13 U/L (12-78); ALBUMIN 2.2 g/dL (3.4-5.0); ALKALINE PHOSPHATASE 123 U/L (46-116); ASPARTATE AMINOTRANSFERASE 16 U/L (15-37); BILIRUBIN,TOTAL 0.8 mg/dL (0.2-1.0); CALCIUM, SERUM 8.4 mg/dL (8.5-10.1); CARBON DIOXIDE 24 mmol/L (21-32); CHLORIDE 99 mmol/L (98-107); CREATININE 2.1 mg/dL (0.6-1.3); GLUCOSE 109 mg/dL (74-106); MAGNESIUM 2.2 mg/dL (1.8-2.4); PHOSPHORUS 4.3 mg/dL (2.5-4.9); POTASSIUM 4.3 mmol/L (3.5-5.1); SODIUM SERUM 132 mmol/L (136-145); TOTAL PROTEIN, SERUM 6.1 g/dL (6.4-8.2); UREA NITROGEN, BLOOD 43 mg/dL (7-18)
[2024-01-13] MEDS: BUMETANIDE INJ 16 MG in IV NS 0.9% 16 ML IV ONE (08:29)
[2024-01-14 05:10] LABS: PTH, INTACT 89 pg/mL (15-65)
[2024-01-16 15:09] LABS: *SPE A/G RATIO 0.8 (0.7-1.7); *SPE ALBUMIN 2.3 g/dL (2.9-4.4); *SPE ALPHA-1-GLOBULIN 0.4 g/dL (0.0-0.4); *SPE ALPHA-2-GLOBULIN 0.9 g/dL (0.4-1.0); *SPE BETA GLOBULIN 0.9 g/dL (0.7-1.3); *SPE M-SPIKE Not Observed g/dL (Not Observed); *SPE PROTEIN TOTAL 5.3 g/dL (6.0-8.5); *SPEGAMMA GLOBULIN 0.7 g/dL (0.4-1.8)
== END 2024-01-13 15:30 | disposition home or self-care (01) | DRG 727 ==
LOC: ER 14:26 → TELE 17:37 → MED 01-11 05:31 → TELE 01-12 03:56 → MED 01-12 11:43
PROVIDERS: ADMIT Internal Medicine; ATTEND Internal Medicine
DX: N49.2 Inflammatory disorders of scrotum (principal); I50.33 Acute on chronic diastolic (congestive) heart failure; R18.8 Other ascites; I31.1 Chronic constrictive pericarditis; I31.39 Other pericardial effusion (noninflammatory); I13.0 Hypertensive heart and chronic kidney disease with heart failure and stage 1 through stage 4 chronic kidney disease, or unspecified chronic kidney disease; K76.6 Portal hypertension; N18.4 Chronic kidney disease, stage 4 (severe); L03.116 Cellulitis of left lower limb; K74.60 Unspecified cirrhosis of liver; D63.8 Anemia in other chronic diseases classified elsewhere; E11.22 Type 2 diabetes mellitus with diabetic chronic kidney disease; E11.40 Type 2 diabetes mellitus with diabetic neuropathy, unspecified; E66.9 Obesity, unspecified; E78.5 Hyperlipidemia, unspecified; I48.91 Unspecified atrial fibrillation; Z91.199 Patient's noncompliance with other medical treatment and regimen due to unspecified reason; N40.0 Benign prostatic hyperplasia without lower urinary tract symptoms; M89.8X9 Other specified disorders of bone, unspecified site; I87.2 Venous insufficiency (chronic) (peripheral); B35.4 Tinea corporis; Z87.891 Personal history of nicotine dependence; B36.9 Superficial mycosis, unspecified
CPT/HCPCS: 36415; 71045-TC; 76770-TC; 76870-TC; 80048-TC; 80053-TC; 80076-TC; 82550-TC; 83605-TC; 83735-TC; 83880; 83970; 84100-TC; 84155; 84165; 84484-TC; 85025-TC; 85730-TC; 87040-TC; 93307-TC; 93970-TC; A4223; G0378; J0696; J1940; J3370; J3371; J3490; J7030; J7050; J7060

== ENCOUNTER 2024-02-20 18:00 | Emergency (ER) | payer MEDICARE, OTHER ==
[~2024-02-20] VITALS: Ht 165.1 cm; Wt 72.6 kg
[~2024-02-20 18:00] MED LIST changes: +BUME2TAB7 PO; -METO25TA4 PO; -RIVA10TA PO; +SPIR25TA6 PO
[2024-02-20 18:38] LABS: BASOPHILS # (AUTO) 0.2 K/uL (0.0-0.2); EOSINOPHILS # (AUTO) 0.1 K/uL (0.0-0.7); HEMATOCRIT 45 % (39-51); HEMOGLOBIN 14.5 g/dL (13.5-17.5); LYMPHOCYTES # (AUTO) 0.7 K/uL (0.8-4.8); LYMPHOCYTES % (AUTO) 9.2 % (20.0-44.0); MEAN CORPUSCULAR HEMOGLOBIN 30 PG (26.0-33.0); MEAN CORPUSCULAR HGB CONC 33 g/dl (31.0-36.0); MEAN CORPUSCULAR VOLUME 91 fL (80-96); MONOCYTES # (AUTO) 0.9 K/uL (0.1-1.30); MONOCYTES % (AUTO) 12.2 % (2.0-12.0); NEUTROPHILS # (AUTO) 5.8 K/uL (1.8-8.9); NEUTROPHILS % (AUTO) 74.6 % (43.0-81.0); PLATELET COUNT (AUTO) 227 K/uL (150-450); RED BLOOD CELL COUNT(AUTO) 4.88 MIL/uL (4.5-6.0); WHITE BLOOD COUNT (AUTO) 7.7 K/uL (4.3-11.0)
[2024-02-20 18:46] LABS: CALCIUM, SERUM 8.6 mg/dL (8.5-10.1); CARBON DIOXIDE 24 mmol/L (21-32); CHLORIDE 100 mmol/L (98-107); CREATININE 2.3 mg/dL (0.6-1.3); GLUCOSE 95 mg/dL (74-106); POTASSIUM 3.7 mmol/L (3.5-5.1); SODIUM SERUM 134 mmol/L (136-145); UREA NITROGEN, BLOOD 52 mg/dL (7-18)
[2024-02-20 18:51] LABS: ALANINE AMINOTRANSFERASE 15 U/L (12-78); ALKALINE PHOSPHATASE 128 U/L (46-116); ASPARTATE AMINOTRANSFERASE 23 U/L (15-37); BILIRUBIN,DIRECT 0.5 mg/dL (0.0-0.2); BILIRUBIN,TOTAL 1.3 mg/dL (0.2-1.0); TOTAL PROTEIN, SERUM 5.6 g/dL (6.4-8.2)
[2024-02-20 18:53] LABS: INR 1.23 (0.91-1.10); PARTIAL THROMBOPLASTIN TIME 25.9 SEC (24.3-34.3); PROTHROMBIN TIME 12.6 SECS (9.2-11.1)
[2024-02-20 20:51] VITALS: BP 100/70; TEMP 98.3; O2SAT 96
== END 2024-02-20 20:52 | disposition home or self-care (01) ==
LOC: ER 18:04
DX: I47.10 Supraventricular tachycardia, unspecified (principal); K74.60 Unspecified cirrhosis of liver; D63.8 Anemia in other chronic diseases classified elsewhere; E11.22 Type 2 diabetes mellitus with diabetic chronic kidney disease; E78.5 Hyperlipidemia, unspecified; E86.0 Dehydration; F03.90 Unspecified dementia, unspecified severity, without behavioral disturbance, psychotic disturbance, mood disturbance, and anxiety; F17.200 Nicotine dependence, unspecified, uncomplicated; I13.0 Hypertensive heart and chronic kidney disease with heart failure and stage 1 through stage 4 chronic kidney disease, or unspecified chronic kidney disease; I50.9 Heart failure, unspecified; I49.1 Atrial premature depolarization; N40.0 Benign prostatic hyperplasia without lower urinary tract symptoms; R00.2 Palpitations; R06.03 Acute respiratory distress; Z79.899 Other long term (current) drug therapy; Z87.19 Personal history of other diseases of the digestive system
CPT/HCPCS: 36415; 71045-TC; 80048-TC; 80076-TC; 85025-TC; 85730-TC